=== PATIENT | female | born 1955 | race Caucasian/White ===

== ENCOUNTER 2024-12-12 08:38 | Outpatient (AMB) | payer MEDICARE, SELFPAY ==
--- OUTSIDE RECORDS SUMMARY | 2024-12-12 08:55 | XMS_ITS | Clinical Summary ---
Author Organization [facility] ity Address [address] [place] [address] Care Team Providers Care Edi Developer Name Role Phone Unavailable Primary Care Provider Unavailabl e Social History Tobacco Use Types Packs/Day Years Used Date Smoking Tobacco: Never Assessed Sex and Gender Information Value Date Recorded Sex Assigned at Not on file Gender Identity Not on file Sexual Orientation Not on file Plan of Treatment Health Maintenance Due Date Last Done Comments Breast Cancer Screening 1955 DTaP,Tdap,and Td Vaccines (1 - Tdap) 1972 Zoster Vaccines (1 of 2) 2003 Pneumococcal Vaccine: 65+ Ye ars (1 of 1 - PCV) 2018 Colorectal Cancer Screening: Colonoscopy 10/11/2022 Depression Screening 10/11/2022 Falls Risk Assessment 10/11/2022 Hepatitis C Screening 10/11/2022 Osteoporosis Screening (Bone Density Screening) 10/11/2022 Social Influencers of Health Screening 10/11/2022 COVID-19 Vaccine ( - 2023-2 5 season) 2024 Influenza Vaccine (#1) 2024 RSV Immunization Patients 60 + Years Old (1 - 1-dose 75+ series) 2028 HIB Vaccines Aged Out No longer eligi ble based on patient's age to complete this topic HPV Vaccines Aged Out No longer eligi ble based on patient's age to complete this topic Hepatitis A Vaccines Aged Out No long er eligible based on patient's age to complete this topic Hepatitis B Vaccines Aged Out No long er eligible based on patient's age to complete this topic IPV Vaccines Aged Out No longer eligi ble based on patient's age to complete this topic MMR Vaccines Aged Out No longer eligi ble based on patient's age to complete this topic Meningococcal ACWY Vaccine Aged Out N o longer eligible based on patient's age to complete this topic RSV Immunization Patients Un tammie 20 months Aged Out No longer eligible b ased on patient's age to complete this topic Varicella Vaccines Aged Out No longer eligible based on patient's age to complete this topic Advance Directives Documents on File Type Date Recorded 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
--- NOTE | 2024-12-12 09:02 | MHC.PC.OV ---
Vital Signs 12/12/24 09:05 Height 5 ft 2 in Weight 225 lb 8 oz BMI 41.2 BP 106/66 Blood Pressure Location Lt brachial Position Sitting Pulse 83 Pulse Source Pulse Oximeter Temp 97.3 F Temp Source Skin Pulse Oximetry (%) 93 Oxygen Delivery Method Room Air Intake Visit Reasons: establish care Intake Note: Patient is a new patient here to establish care for HTN, Cholesterol, Chronic Pain, GERD, Neuropathy. Transferring care from Dr De Guzman ([facility] ([place], [place])). Medical records have been requested and have not received. Pt decline flu shot today. Skin Care Consultant Required: No Exhibitions And Collections Manager: Not Required per policy Accompanied by: Self / Same As Patient Allergies No Known Allergies Allergy (Verified 12/13/24 08:05) Medication List - Last Reconciled 12/13/24 by Tim Cornell PA-C acetaminophen ER (Tylenol Arthritis Pain) 650 mg PO Q12H allopurinol 100 mg PO BID biotin 5,000 mcg PO DAILY comp.stocking,knee,long,medium Need for medical compression 10-15 mmHg furosemide 20 mg PO DAILY gabapentin 300 mg PO TID Lactobac. rhamnosus GG-inulin 12 billion cell -200 mg 1 cap PO DAILY lisinopril 30 mg PO DAILY multivit with min-folic acid 200 mcg 1 tab PO DAILY omeprazole 40 mg PO DAILY simvastatin 40 mg PO BEDTIME Tobacco use date assessed: 12/12/24 Fall risk assessment: No Falls in past year Last assessed Fall Risk: 12/12/24 Dental Screening Dental Screen Date: 12/12/24 Did you have a dental visit in the last 12 months?: Yes Did you have a dental problem in the last 6 months where you did not have access to dental care?: No Was dental information given to patient?: Patient has dentist HPI establish care HPI Details Patient is a 68-year-old female here today for a new patient visit. Patient previous PCP was at [facility]. Patient has a past medical history significant for hypertension, hyperlipidemia, obstructive sleep apnea, prediabetes, nephrolithiasis, heart failure with preserved ejection fraction. .. -Pulmonary hypertensio--> Approximately 15-20 years ago, the patient fell out of a stationary van, landing on her left side, which has resulted in a larger left leg with longstanding positional preference while sleeping on the left side. Two years ago, the patient noticed increasing difficulty in ambulating and rising stairs, reporting to the emergency room at [facility], where she was noted to have swollen limbs. Initial workup led to a suspicion of congestive heart failure, but later assessments ruled out this diagnosis, although severe pulmonary hypertension was noted. She takes diuretics daily as prescribed to manage fluid retention but reports no exacerbation of urination issues. .. Nephrolithiasis: Patient does follow urologist in [place]. She continues on allopurinol to decrease her recurrent kidney stones. .. Lower extremity edema: Seems to have lower extremity edema has a chronic issue. Has been using compression socks though since losing weight they have become more loose. Also using Lasix on a daily basis. On physical exam does seem she may have lymphedema likely secondary to her obesity. She does have some skin hyperpigmentation changes over her anterior shins. [facility] Medical History History of calculus of gallbladder Social History Housing: House Alcohol intake: never Patient Tobacco Use Status: Never used Tobacco e-Cigarette/Vaping Use: Never Used Second Hand Smoke Exposure: No service: No Current occupational status: disabled Cognitive needs: Yes (walker, wheelchair, cane ) Hearing needs: No Vision needs: Yes (reading glasses) Questionnaire PHQ-9 Over the last 2 weeks, how often have you been bothered by any of the following problems? 1. Little interest or pleasure in doing things: not at all 2. Feeling down, depressed, or hopeless: not at all 3. Trouble falling or staying asleep, or sleeping too much: not at all 4. Feeling tired or having little energy: not at all 5. Poor appetite or overeating: not at all 6. Feeling bad about yourself - or that you are a failure or have let yourself or your family down: not at all 7. Trouble concentrating on things, such as reading the newspaper or watching television: not at all 8. Moving or speaking so slowly that other people could have noticed. Or the opposite - being so fidgety or restless that you have been moving around a lot more than usual: not at all 9. Thoughts that you would be better off or of hurting yourself in some way: not at all Total score: 0 Depression Screening Interpretation: Negative Depression Screening Done: Yes 88796 - PHQ-9 Billing: Yes Source: Developed by Drs. Efra Bautista, Chang Trammell and colleagues, with an educational phillip from [employer]. Thrive Questionnaire Date Thrive assessed: 12/12/24 I am a: Patient What is your living situation today?: I have a steady place to live Within the past 12 months, did the food you bought not last and you didn't have the money to get more?: Never true Within the past 12 months, did you worry whether your food would run out before you got money to buy more?: Never true Do you have trouble paying for medicines?: No Do you have trouble getting transportation to medical appointments?: No Do you have trouble paying your heating and electricity bill?: No Do you have trouble taking care of your child, family member or friend?: No Do you have trouble with day-to-day activities such as bathing, preparing meals, shopping, managing finances, etc.?: No Are you currently unemployed and looking for a job?: No Are you interested in more education?: No Please select the resources that you would like help with: None Currently or been in a relationship where the following occur: No concerns reported THRIVE Score: 0 AUDIT C Alcohol Use Questionnaire (AUDIT-C) 1. How often do you have a drink containing alcohol?: Never Total Score: 0 JARED-7 AMB Questionnaire JARED-7 Date JARED - 7 assessed: 12/12/24 Feeling nervous, anxious, or on edge: 0 = Not at all Not being able to stop or control worryin = Not at all Worrying too much about different things: 0 = Not at all Trouble relaxin = Not at all Being so restless that it is hard to sit still: 0 = Not at all Becoming easily annoyed or irritable: 0 = Not at all Feeling afraid as if something awful might happen: 0 = Not at all Total JARED-7 score (0-4 normal; 5-9 mild; 10-14 moderate; 15-21 severe): 0 Source: Developed by Priyanka Marquez Kurt Kroenke and colleagues, with an educational phillip from [employer]. Review of Systems Const Denies headache(s) Eyes Denies loss of vision ENT Denies vertigo, Denies dizziness, Denies headache(s) and Denies sore throat Card Denies chest pain, Denies leg edema and Denies lightheadedness Resp Denies cough, Denies hemoptysis and Denies wheezing GI Denies abdominal pain, Denies melena, Denies constipation, Denies diarrhea and Denies vomiting Denies urinary frequency, Denies dysuria and Denies urinary urgency Musc Denies arthralgias, Denies joint swelling, Denies numbness and Denies tingling Neuro Denies Abnormal speech present, Denies behavioral changes, Denies vertigo, Denies dizziness, Denies headache(s), Denies loss of vision, Denies memory loss, Denies numbness and Denies tingling Psych Denies anxiety, Denies behavioral changes, Denies depression, Denies memory loss and Denies panic attacks Deangelo/Lymph Denies easy bleeding and Denies easy bruising Aller/Immun Denies wheezing Physical exam (Primary Care) Vital Signs: Last Vital Signs Temp 97.3 F 12/12/24 09:05 Pulse 83 12/12/24 09:05 BP 106/66 12/12/24 09:05 Pulse Ox 93 12/12/24 09:05 Oxygen Delivery Method Room Air 12/12/24 09:05 BMI result Body Mass Index 41.2 BMI Assessment/Plan discussion: High BMI High, discussed plan: lifestyle, weight reduction, dietary and physical activity Tobacco/Smoking Status: Tobacco use Status Tobacco use date assessed 12/12/24 12/12/24 09:26 Patient Tobacco Use Status Never used Tobacco 12/12/24 09:26 e-Cigarette/Vaping Use Never Used 12/12/24 09:26 PHQ-9: PHQ-9 Score PHQ-9: Total score 0 12/12/24 13:14 Depression Screening Interpretation: Negative Thrive Assessment: Date of Thrive Assessment Date Thrive assessed 12/12/24 12/12/24 09:26 Currently or been in a relationship where the following occur: No concerns reported Const General: healthy appearing, no acute distress, alert and awake Nutritional Appearance: well nourished Orientation/consciousness: oriented to person, oriented to place and oriented to time HENMT Ears: TM's normal bilaterally General nose exam: Normal nasal mucous membranes and turbinates present Eyes Conjunctivae: conjunctivae normal Sclerae: sclerae normal Pupils: Equal, round and reactive pupils present Neck Neck: Yes no lymphadenopathy and Yes no JVD Thyroid: Thyroid normal Carotids: no bruits Resp Effort & Inspection: normal respiratory effort and not tachypneic Auscultation: no crackles, no rales, no rhonchi and no wheezes Cardio Rate: regular rate Rhythm: regular rhythm Heart sounds: no murmurs and normal S1 and S2 GI Palpation (GI): Soft to palpation, nontender, no hepatomegaly and no splenomegaly Auscultation: normal bowel sounds Skin General skin exam: no rashes or lesions noted and dry skin Neuro General: oriented to person, oriented to place and oriented to time Cranial nerves: Yes Equal, round and reactive pupils present Speech: No Abnormal speech present Gait exam (Neuro): Normal gait present Motor exam (neuro): no tremor noted Extrem Other: BILATERAL LOWER EXTREMITIES WITH NOTABLE LYMPHEDEMA WITH SKIN CHANGES OF HYPERPIGMENTATION OVER THE ANTERIOR SHINS Right upper extremity: full ROM Left upper extremity: full ROM Right lower extremity: full ROM and edema Left lower extremity: full ROM and edema Psych Mental Status: mental status grossly normal Speech and movement: Normal speech and movement present Affect: normal affect Attitude: cooperative Thought process: Normal thought process present Coding Level of Care Code New Pt Level 4 (17793) Diagnoses Primary hypertension I10 Hypertension type: primary hypertension Chronic diastolic congestive heart failure, NYHA class 2 I50.32 Congestive heart failure chronicity: chronic Congestive heart failure type: diastolic Pulmonary HTN I27.20 Class 3 obesity E66.813 Lower extremity edema R60.0 Nephrolithiasis N20.0 Mixed hyperlipidemia E78.2 Hyperlipidemia type: mixed hyperlipidemia Impaired glucose metabolism R73.09 Lymphedema I89.0 Additional Codes PHQ-9 - 47750 - PHQ-9 Billing: Yes ([id number]) Assessment & Plan Assessment & Plan (1) HTN (hypertension): Code(s): I10 - Essential (primary) hypertension Category: Medical Qualifiers: Hypertension type: primary hypertension Qualified Code(s): I10 - Essential (primary) hypertension Plan: Patient's blood pressure acceptable today office. Will continue her current dose antihypertensive medication with goal blood pressure to be below 140/90 (2) CHF (congestive heart failure), NYHA class II: Code(s): I50.9 - Heart failure, unspecified Category: Medical Qualifiers: Congestive heart failure chronicity: chronic Congestive heart failure type: diastolic Qualified Code(s): I50.32 - Chronic diastolic (congestive) heart failure Plan: As per HPI patient was to have a preserved ejection fraction 55-60% at [facility]. She was found to have severe pulmonary hypertension. Of note she does apparently have a history of obstructive sleep apnea though feels she does not have this anymore. Offered her re-evaluation with a sleep study though she declines at this time. (3) Pulmonary HTN: Code(s): I27.20 - Pulmonary hypertension, unspecified Category: Medical Plan: As above (4) Class 3 obesity: Code(s): E66.813 - Obesity, class 3 Category: Medical Plan: Patient does understand her BMI is over 40 and will continue working on being more physically active and adapting to better eating habits to reduce weight (5) Lower extremity edema: Code(s): R60.0 - Localized edema Category: Medical Plan: Patient continues with Lasix on a daily basis though not clear if this is helpful to her lower extremity edema. Will supply patient with paper Rx for medical compression socks to use for her lower extremity edema. Will also refer to vascular for evaluation and possible lymphedema clinic treatment. (6) Nephrolithiasis: Code(s): N20.0 - Calculus of kidney Category: Medical Plan: Patient continues on allopurinol and is followed by a urologist in [place]. She has not had any kidney stone and quite awhile. (7) HLD (hyperlipidemia): Code(s): E78.5 - Hyperlipidemia, unspecified Category: Medical Qualifiers: Hyperlipidemia type: mixed hyperlipidemia Qualified Code(s): E78.2 - Mixed hyperlipidemia Plan: Patient continues on simvastatin 40 mg. Will check a fasting lipid panel to ensure appropriate total cholesterol and LDL. Goal LDL to be below 100 (8) Impaired glucose metabolism: Code(s): R73.09 - Other abnormal glucose Category: Medical Plan: Patient has a history of prediabetes to which he has been trying to manage with lifestyle and dietary modifications. Will continue to follow fasting blood sugar and A1c. Goal A1c is to remain below 6.5. (9) Lymphedema: Code(s): I89.0 - Lymphedema, not elsewhere classified Category: Medical Plan: As above patient's lower extremity swelling appears to be more lymphedema like. Will refer to vascular for evaluation and perhaps more articulating in the lymphedema Clinic for mechanical massage. Orders: Orders Hemoglobin A1c 12/12/24 R73.09 - Other abnormal glucose Uric Acid 12/12/24 N20.0 - Calculus of kidney Microalbumin, Random (w Creat) 12/12/24 I10 - Essential (primary) hypertension Comprehensive Advance. Panel Fast 12/12/24 I10 - Essential (primary) hypertension Complete Blood Count no Diff 12/12/24 I10 - Essential (primary) hypertension US venous duplex LE BI 12/12/24 I89.0 - Lymphedema, not elsewhere classified, R60.0 - Localized edema Referrals Cardiology Referral I50.9 - Heart failure, unspecified Vascular Surgery Referral I89.0 - Lymphedema, not elsewhere classified Medications: New comp.stocking,knee,long,medium Need for medical compression 10-15 mmHg 2 ea 0RF R60.0 - Localized edema
[2024-12-12 09:05] VITALS: BP 106/66; PULSE 83; TEMP 36.3; O2SAT 93; BMI 41.2
== END 2024-12-12 09:53 | disposition home or self-care (01) ==
PROVIDERS: PCP Physician Assistant; Visit Provider Physician Assistant
DX: I11.0 Hypertensive heart disease with heart failure (principal); I50.32 Chronic diastolic (congestive) heart failure; E66.813 Obesity, class 3; Z68.41 Body mass index [BMI] 40.0-44.9, adult; I27.20 Pulmonary hypertension, unspecified; R60.0 Localized edema; N20.0 Calculus of kidney; E78.2 Mixed hyperlipidemia; R73.09 Other abnormal glucose; I89.0 Lymphedema, not elsewhere classified

== ENCOUNTER → 2024-12-12 08:38 | Outpatient (BNVA) | payer MEDICARE, SELFPAY | PROVIDERS: PCP Physician Assistant; Visit Provider Physician Assistant | DX: I11.0 Hypertensive heart disease with heart failure (principal); I50.32 Chronic diastolic (congestive) heart failure; I27.20 Pulmonary hypertension, unspecified; R60.0 Localized edema; N20.0 Calculus of kidney; E78.2 Mixed hyperlipidemia; R73.09 Other abnormal glucose; I89.0 Lymphedema, not elsewhere classified; E66.813 Obesity, class 3; Z68.41 Body mass index [BMI] 40.0-44.9, adult; Z71.3 Dietary counseling and surveillance | CPT/HCPCS: 96127; 99202 ==

== ENCOUNTER 2025-03-01 09:20 | Outpatient (REF) | payer MEDICARE, SELFPAY ==
--- NOTE | ~2025-03-01 | US_ITS ---
US ARTERIAL DUPLEX LE BI EXAMINATION: COLOR-FLOW DUPLEX IMAGING OF THE BILATERAL LOWER EXTREMITY ARTERIAL SYSTEM. VELOCITY MEASUREMENTS THROUGHOUT THE FEMORAL ARTERIES. CLINICAL INFORMATION: Localized edema. Hypertension, hyperlipidemia. FINDINGS: Atheromatous Plaque: Mild scattered soft plaque identified sonographically. RIGHT FEMORAL RUNOFF VELOCITIES: The right common femoral artery measures 240 cm/s and triphasic. There is moderate stenosis by velocity criteria. The right profunda femoral artery is 76 cm/s and is triphasic. The right proximal superficial femoral artery measures 144 cm/s and triphasic. There is mild stenosis by velocity criteria. The right mid superficial femoral artery is 113 cm/s and triphasic. The right distal right superficial femoral artery measures 123 cm/s and is triphasic. The right popliteal velocity measures 83 cm/s and is triphasic. The right posterior tibial artery velocity measures 90 cm/s and is triphasic. The right peroneal artery proximally velocity measures 85.6 cm/s and is biphasic. The right DPA velocity measures 24.2 cm/s and is triphasic. The right KYLE velocity measures 20.2 cm/s and is biphasic. LEFT FEMORAL RUNOFF VELOCITIES: The left common femoral artery measures 135 cm/s and triphasic. There is mild stenosis by velocity criteria. The left profunda femoral artery is 90.9 cm/s and is triphasic. The left proximal superficial femoral artery measures 126 cm/s and triphasic. There is mild stenosis by velocity criteria. The left mid superficial femoral artery is 138 cm/s and biphasic. There is mild stenosis by velocity criteria. The left distal right superficial femoral artery measures 59 cm/s and is triphasic. The left popliteal velocity measures 90 cm/s and is triphasic. The left posterior tibial artery velocity measures 77 cm/s and is triphasic. The left peroneal artery measures 75 cm/s and is triphasic. The left DPA velocity measures 28.3 cm/s and is biphasic. The left KYLE velocity measures 17.7 cm/s and is triphasic. US/US arterial duplex LE BI IMPRESSION: 1. There is mild scattered atheromatous plaque bilaterally. 2. Moderate stenosis in the RIGHT common femoral artery based upon velocity criteria. 3. 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 4. No high-grade stenosis identified in either lower extremity on this sonographic examination. Electronically signed by: Hemant Torres MD 03/06/2025 08:46 AM EDT RP
--- OUTSIDE RECORDS SUMMARY | 2025-03-01 10:16 | XMS_ITS | Clinical Summary ---
Author Organization [facility] ity Address [address] [place] [address] Care Team Providers Care Solution Analyst Name Role Phone Unavailable Primary Care Provider Unavailabl e Social History Tobacco Use Types Packs/Day Years Used Date Smoking Tobacco: Never Assessed Comments Unknown Sex and Gender Information Value Date Recorded Sex Assigned at Not on file Legal Sex Female 8:08 AM EST Gender Identity Not on file Sexual Orientation Not on file Plan of Treatment Health Maintenance Due Date Last Done Comments Breast Cancer Screening 1955 DTaP,Tdap,and Td Vaccines (1 - Tdap) 1972 Pneumococcal Vaccine: 50+ Ye ars (1 of 1 - PCV) 2003 Zoster Vaccines (1 of 2) 2003 Colorectal Cancer Screening: Colonoscopy 10/11/2022 Depression Screening 10/11/2022 Falls Risk Assessment 10/11/2022 Hepatitis C Screening 10/11/2022 Osteoporosis Screening (Bone Density Screening) 10/11/2022 Social Influencers of Health Screening 10/11/2022 COVID-19 Vaccine (2023-2 5 season) 2024 Influenza Vaccine (Season Ended) 2025 RSV Immunization Adult Patie nts (1 - 1-dose 75+ series) 2028 HIB [...] patient's age to complete this topic Meningococcal B Vaccine Aged Out No l onger eligible based on patient's age to complete this topic RSV Immunization Patients Un tammie 20 months Aged Out No longer eligible b ased on patient's age to complete this topic Varicella Vaccines Aged Out No longer eligible based on patient's age to complete this topic Advance Directives Documents on File Type Date Recorded Patient Christian Counselor Expl anation Health Care Decision (hx) 09/03/2023 AD CLARISA DIRECTIVE
[2025-03-01 10:41] LABS: Hematocrit 35.1 % (37.0-47.0); Hemoglobin 11.3 g/dl (12.0-16.0); Mean Corpuscular HGB Conc 32.2 g/dl (31.0-35.0); Mean Corpuscular Hemoglobin 33.3 pg (27.0-33.0); Mean Corpuscular Volume 103.5 fL (80.0-98.0); Mean Platelet Volume 10.8 fL (9.4-12.3); Platelet Count 213 X10*3/uL (160-400); Red Blood Count 3.39 X10*6/uL (4.20-5.50); Red Cell Distribution Width 13.4 % (11.0-16.0); White Blood Count 7.3 X10*3/uL (4.8-10.8)
[2025-03-01 10:47] LABS: Estimated Average Glucose 126 mg/dL; Hemoglobin A1C 124.7173 umol/L; Total Hemoglobin (HGBA1C) 2994.0498 umol/L
[2025-03-01 11:22] LABS: Alanine Aminotransferase 10 U/L (0-31); Albumin Level 3.8 g/dL (3.5-5.0); Alkaline Phosphatase 111 U/L (39-117); Anion Gap 12 (12-20); Aspartate Amino Transferase 15 U/L (5-31); Bilirubin Total 0.4 mg/dL (0.0-1.0); Blood Urea Nitrogen 54 mg/dL (9-16); Calcium 9.5 mg/dL (8.4-10.2); Carbon Dioxide 22 mmol/L (22-29); Chloride 112 mmol/L (96-108); Estimated Glomerular Filt Rate 34; Glucose Fasting 105 mg/dL (60-99); Potassium 5.5 mmol/L (3.3-5.1); Sodium 140 mmol/L (135-145); Total Protein 6.8 g/dL (6.5-8.0); Uric Acid 4.7 mg/dL (2.4-5.7)
[2025-03-01 12:36] LABS: Creatinine Urine 99.31 mg/dL
== END 2025-03-01 09:21 | disposition home or self-care (01) ==
LOC: HO.US 09:20
PROVIDERS: PCP Physician Assistant; Visit Provider Physician Assistant
DX: N20.0 Calculus of kidney (principal); R73.09 Other abnormal glucose; I10 Essential (primary) hypertension; I70.203 Unspecified atherosclerosis of native arteries of extremities, bilateral legs; R60.0 Localized edema
CPT/HCPCS: 36415; 80053; 82043; 82570; 83036; 84550; 85027; 93925

== ENCOUNTER → 2025-03-01 09:47 | Outpatient (BNV) | payer MEDICARE, SELFPAY | PROVIDERS: PCP Physician Assistant; Visit Provider Radiology Diagnostic Radiology | DX: I70.201 Unspecified atherosclerosis of native arteries of extremities, right leg (principal) | CPT/HCPCS: 93925 ==

== ENCOUNTER 2025-03-08 10:47 | Outpatient (REF) | payer MEDICARE, SELFPAY ==
--- OUTSIDE RECORDS SUMMARY | 2025-03-08 12:23 | XMS_ITS | Clinical Summary ---
Author Organization [facility] ity Address [address] [place] [address] Care Team Providers Care Publications Writer Name Role Phone Unavailable Primary Care Provider [...] Documents on File Type Date Recorded Patient Service Center Assistant Expl anation Health Care Decision (hx) 09/03/2023 AD CLARISA DIRECTIVE
[2025-03-08 12:31] LABS: Anion Gap 14 (12-20); Blood Urea Nitrogen 37 mg/dL (9-16); Calcium 9.5 mg/dL (8.4-10.2); Carbon Dioxide 26 mmol/L (22-29); Chloride 108 mmol/L (96-108); Estimated Glomerular Filt Rate 49; Glucose Random 115 mg/dL (60-115); Potassium 5.6 mmol/L (3.3-5.1); Sodium 142 mmol/L (135-145)
== END 2025-03-08 10:48 | disposition home or self-care (01) ==
LOC: HO.LAB 10:47
PROVIDERS: PCP Physician Assistant; Visit Provider Physician Assistant
DX: E87.5 Hyperkalemia (principal)
CPT/HCPCS: 36415; 80048

== ENCOUNTER 2025-03-23 10:25 | Outpatient (REF) | payer MEDICARE, SELFPAY ==
--- OUTSIDE RECORDS SUMMARY | 2025-03-23 10:45 | XMS_ITS | Clinical Summary ---
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
[2025-03-23 11:59] LABS: Potassium 3.4 mmol/L (3.3-5.1)
== END 2025-03-23 10:26 | disposition home or self-care (01) ==
LOC: HO.LAB 10:25
PROVIDERS: PCP Physician Assistant; Visit Provider Physician Assistant
DX: E87.5 Hyperkalemia (principal)
CPT/HCPCS: 36415; 84132

== ENCOUNTER 2025-03-29 11:04 | Outpatient (AMB) | payer MEDICARE, SELFPAY ==
--- NOTE | 2025-03-29 11:18 | MHC.PC.OV ---
Vital Signs 03/29/25 11:30 Height 5 ft 2 in Weight 235 lb 2 oz BMI 43.0 BP 104/66 Blood Pressure Location Lt brachial Position Sitting Pulse 68 Pulse Source Pulse Oximeter Temp 97.3 F Temp Source Temporal Artery Scan Pulse Oximetry (%) 98 Oxygen Delivery Method Room Air Intake Visit Reasons: f/u HTN/ IGM - see comments Incoming Freight Clerk Required: No Accompanied by: Spouse Allergies No Known Allergies Allergy (Verified 03/29/25 11:49) Medication List - Last Reconciled 03/29/25 by Tim Cornell PA-C acetaminophen ER (Tylenol Arthritis Pain) 650 mg PO Q12H allopurinol 100 mg PO BID biotin 5,000 mcg PO DAILY comp.stocking,knee,long,medium Need for medical compression 10-15 mmHg furosemide 20 mg PO DAILY gabapentin 300 mg PO TID hydrochlorothiazide 12.5 mg PO DAILY Lactobac. rhamnosus GG-inulin 12 billion cell -200 mg 1 cap PO DAILY lisinopril 30 mg PO DAILY multivit with min-folic acid 200 mcg 1 tab PO DAILY omeprazole 40 mg PO DAILY simvastatin 40 mg PO BEDTIME sodium polystyrene sulf-sorbtl 15-20 gram/60 mL 60 mL PO .once per week 4 weeks Tobacco use date assessed: 12/12/24 Fall risk assessment: No Falls in past year Last assessed Fall Risk: 03/29/25 Dental Screening Dental Screen Date: 12/12/24 HPI f/u HTN/ IGM - see comments HPI Details Patient is a 69-year-old female here today for a follow-up visit . . Patient has a past medical history significant for hypertension, hyperlipidemia, obstructive sleep apnea, prediabetes, nephrolithiasis, heart failure with preserved ejection fraction. .. Hyperkalemia: Recently found to have hyperkalemia was started polystyrene liquid once weekly. Potassium seems to have improved. Will has been holding her lisinopril has a maybe cause of her hyperkalemia. PLAN: For now plan is to continue polystyrene once weekly, continue off of KATY inhibitor. Continue on hydrochlorothiazide and monitor blood pressure .. Nephrolithiasis: Patient does follow urologist in [place]. She continues on allopurinol to decrease her recurrent kidney stones. .. Lower extremity edema: Seems to have lower extremity edema has a chronic issue. Has been using compression socks though since losing weight they have become more loose. Also using Lasix on a daily basis. On physical exam does seem she may have lymphedema likely secondary to her obesity. She does have some skin hyperpigmentation changes over her anterior shins. .. Impaired glucose metabolism: Patient's most recent fasting blood sugar slightly elevated and A1c 6.0. She will continue working on dietary modifications on controlling her fasting blood sugars [facility] Medical History History of calculus of gallbladder Social History Housing: House Alcohol intake: never Patient Tobacco Use Status: Never used Tobacco e-Cigarette/Vaping Use: Never Used Second Hand Smoke Exposure: No service: No Current occupational status: disabled Cognitive needs: Yes (walker, wheelchair, cane ) Hearing needs: No Vision needs: Yes (reading glasses) Questionnaire PHQ-9 Over the last 2 weeks, how often have you been bothered by any of the following problems? 1. Little interest or pleasure in doing things: not at all 2. Feeling down, depressed, or hopeless: several days 3. Trouble falling or staying asleep, or sleeping too much: not at all 4. Feeling tired or having little energy: not at all 5. Poor appetite or overeating: not at all 6. Feeling bad about yourself - or that you are a failure or have let yourself or your family down: not at all 7. Trouble concentrating on things, such as reading the newspaper or watching television: not at all 8. Moving or speaking so slowly that other people could have noticed. Or the opposite - being so fidgety or restless that you have been moving around a lot more than usual: not at all 9. Thoughts that you would be better off or of hurting yourself in some way: not at all Total score: 1 Depression Screening Interpretation: Negative Depression Screening Done: Yes [id number] - PHQ-9 Billing: Yes Source: Developed by Drs. Efra Bautista, Priyanka Ewing, Chang Ruiz and colleagues, with an educational phillip from [employer]. Thrive Questionnaire Date Thrive assessed: 12/12/24 I am a: Patient What is your living situation today?: I have a steady place to live Within the past 12 months, did the food you bought not last and you didn't have the money to get more?: Never true Within the past 12 months, did you worry whether your food would run out before you got money to buy more?: Never true Do you have trouble paying for medicines?: No Do you have trouble getting transportation to medical appointments?: No Do you have trouble paying your heating and electricity bill?: No Do you have trouble taking care of your child, family member or friend?: No Do you have trouble with day-to-day activities such as bathing, preparing meals, shopping, managing finances, etc.?: No Are you currently unemployed and looking for a job?: No Are you interested in more education?: No Please select the resources that you would like help with: None Currently or been in a relationship where the following occur: No concerns reported THRIVE Score: 0 JARED-7 AMB Questionnaire JARED-7 Date JARED - 7 assessed: 12/12/24 Source: Developed by Drs. Efra Bautista, Priyanka Ewing, Chang Ruiz and colleagues, with an educational phillip from [employer]. Review of Systems Const Denies headache(s) Eyes Denies loss of vision ENT Denies vertigo, Denies dizziness, Denies headache(s) and Denies sore throat Card Denies chest pain, Denies leg edema and Denies lightheadedness Resp Denies cough, Denies hemoptysis and Denies wheezing GI Denies abdominal pain, Denies melena, Denies constipation, Denies diarrhea and Denies vomiting Denies urinary frequency, Denies dysuria and Denies urinary urgency Musc Denies arthralgias, Denies joint swelling, Denies numbness and Denies tingling Neuro Denies Abnormal speech present, Denies behavioral changes, Denies vertigo, Denies dizziness, Denies headache(s), Denies loss of vision, Denies memory loss, Denies numbness and Denies tingling Psych Denies anxiety, Denies behavioral changes, Denies depression, Denies memory loss and Denies panic attacks Deangelo/Lymph Denies easy bleeding and Denies easy bruising Aller/Immun Denies wheezing Physical exam (Primary Care) Vital Signs: Last Vital Signs Temp 97.3 F 03/29/25 11:30 Pulse 68 03/29/25 11:30 BP 104/66 03/29/25 11:30 Pulse Ox 98 03/29/25 11:30 Oxygen Delivery Method Room Air 03/29/25 11:30 BMI result Body Mass Index 43.0 BMI Assessment/Plan discussion: High BMI High, discussed plan: lifestyle, weight reduction, dietary and physical activity Tobacco/Smoking Status: Tobacco use Status Tobacco use date assessed 12/12/24 03/29/25 11:18 Patient Tobacco Use Status Never used Tobacco 03/29/25 11:18 e-Cigarette/Vaping Use Never Used 03/29/25 11:18 PHQ-9: PHQ-9 Score PHQ-9: Total score 1 03/29/25 12:05 Depression Screening Interpretation: Negative Thrive Assessment: Date of Thrive Assessment Date Thrive assessed 12/12/24 03/29/25 11:18 Currently or been in a relationship where the following occur: No concerns reported Const General: healthy appearing, no acute distress, alert and awake Nutritional Appearance: well nourished Orientation/consciousness: oriented to person, oriented to place and oriented to time HENMT Ears: TM's normal bilaterally General nose exam: Normal nasal mucous membranes and turbinates present Eyes Conjunctivae: conjunctivae normal Sclerae: sclerae normal Pupils: Equal, round and reactive pupils present Neck Neck: Yes no lymphadenopathy and Yes no JVD Thyroid: Thyroid normal Carotids: no bruits Resp Effort & Inspection: normal respiratory effort and not tachypneic Auscultation: no crackles, no rales, no rhonchi and no wheezes Cardio Rate: regular rate Rhythm: regular rhythm Heart sounds: no murmurs and normal S1 and S2 GI Palpation (GI): Soft to palpation, nontender, no hepatomegaly and no splenomegaly Auscultation: normal bowel sounds Skin General skin exam: no rashes or lesions noted and dry skin Neuro General: oriented to person, oriented to place and oriented to time Cranial nerves: Yes Equal, round and reactive pupils present Speech: No Abnormal speech present Gait exam (Neuro): Normal gait present Motor exam (neuro): no tremor noted Extrem Right upper extremity: full ROM Left upper extremity: full ROM Right lower extremity: full ROM; no edema Left lower extremity: full ROM; no edema Psych Mental Status: mental status grossly normal Speech and movement: Normal speech and movement present Affect: normal affect Attitude: cooperative Thought process: Normal thought process present Coding Level of Care Code Est Pt Level 4 (72326) Diagnoses Primary hypertension I10 Hypertension type: primary hypertension Chronic diastolic congestive heart failure, NYHA class 2 I50.32 Congestive heart failure chronicity: chronic Congestive heart failure type: diastolic Pulmonary HTN I27.20 Class 3 obesity E66.813 Lower extremity edema R60.0 Mixed hyperlipidemia E78.2 Hyperlipidemia type: mixed hyperlipidemia Impaired glucose metabolism R73.09 Lymphedema I89.0 Hyperkalemia E87.5 Additional Codes PHQ-9 - 96251 - PHQ-9 Billing: Yes ([id number]) Assessment & Plan Assessment & Plan (1) HTN (hypertension): Code(s): I10 - Essential (primary) hypertension Category: Medical Qualifiers: Hypertension type: primary hypertension Qualified Code(s): I10 - Essential (primary) hypertension Plan: Patient's blood pressure acceptable today office. We have discontinued her lisinopril to the hyperkalemia. Has been started on hydrochlorothiazide and does note urinary frequency though has been tolerable. Will continue her current dose of hydrochlorothiazide 12.5 mg Goal blood pressure to be below 140/90 (2) CHF (congestive heart failure), NYHA class II: Code(s): I50.9 - Heart failure, unspecified Category: Medical Qualifiers: Congestive heart failure chronicity: chronic Congestive heart failure type: diastolic Qualified Code(s): I50.32 - Chronic diastolic (congestive) heart failure Plan: As per HPI patient was to have a preserved ejection fraction 55-60% at [facility]. She was found to have severe pulmonary hypertension. Of note she does apparently have a history of obstructive sleep apnea though feels she does not have this anymore. Offered her re-evaluation with a sleep study though she declines at this time. (3) Pulmonary HTN: Code(s): I27.20 - Pulmonary hypertension, unspecified Category: Medical Plan: As above (4) Class 3 obesity: Code(s): E66.813 - Obesity, class 3 Category: Medical Plan: Patient does understand her BMI is over 40 and will continue working on being more physically active and adapting to better eating habits to reduce weight (5) Lower extremity edema: Code(s): R60.0 - Localized edema Category: Medical Plan: Patient continues with Lasix on a daily basis though not clear if this is helpful to her lower extremity edema. Will also refer to vascular for evaluation and possible lymphedema clinic treatment. (6) HLD (hyperlipidemia): Code(s): E78.5 - Hyperlipidemia, unspecified Category: Medical Qualifiers: Hyperlipidemia type: mixed hyperlipidemia Qualified Code(s): E78.2 - Mixed hyperlipidemia Plan: Patient continues on simvastatin 40 mg. Will check a fasting lipid panel to ensure appropriate total cholesterol and LDL. Goal LDL to be below 100 (7) Impaired glucose metabolism: Code(s): R73.09 - Other abnormal glucose Category: Medical Plan: Patient has a history of prediabetes most recent fasting blood sugar slightly elevated in A1c is 6.0. She will continue working on dietary modifications to reduce her blood sugars. Goal A1c is to remain below 6.5. (8) Lymphedema: Code(s): I89.0 - Lymphedema, not elsewhere classified Category: Medical Plan: As above patient's lower extremity swelling appears to be more lymphedema like. Will refer to vascular for evaluation and perhaps more articulating in the lymphedema Clinic for mechanical massage. (9) Hyperkalemia: Code(s): E87.5 - Hyperkalemia Category: Medical Plan: As per HPI- will continue polystyrene once weekly, continue off of KTAY inhibitor which is likely cause of her hyperkalemia. Continues on hydrochlorothiazide for blood pressure control. Orders: Orders Comprehensive [place]. Panel Fast Today R73.09 - Other abnormal glucose NT-proBNP Today I50.32 - Chronic diastolic (congestive) heart failure Lipid Panel Today E78.2 - Mixed hyperlipidemia Hemoglobin A1c Today R73.09 - Other abnormal glucose Complete Blood Count no Diff Today R73.09 - Other abnormal glucose Referrals Vascular Surgery Referral I89.0 - Lymphedema, not elsewhere classified
[2025-03-29 11:30] VITALS: BP 104/66; PULSE 68; TEMP 36.3; O2SAT 98; BMI 43.0
--- OUTSIDE RECORDS SUMMARY | 2025-03-29 11:44 | XMS_ITS | Clinical Summary ---
Author Organization [facility] Address [address] [place] [address] Phone Care Team Providers Care Configuration Management Architect Name Role Phone Physician, Pcp Unknown Primary Care Provider Estella vailable Allergies No known active allergies Medications No known medications Active Problems No known active problems Encounters Date Type Department Care Team Description 03/27/2025 8:56 PM EDT - 03/27/2025 9:36 PM EDT Emergency [facility] Emergency [address] [place] [address] Urinary frequency (Primary Dx) Discharge Disposition: Home or Self Care from Last 3 Months Social History Tobacco Use Types Packs/Day Years Used Date Smoking Tobacco: Never Smokeless Tobacco: Never Tobacco Cessation:Counseling Given: Not Answered Alcohol Use Standard Drinks/Week Comments Never 0 (1 standard drink = 0.6 oz pur e alcohol) Comments Unknown Sex and Gender Information Value Date Recorded Sex Assigned at Not on file Legal Sex Female 8:08 AM EST Gender Identity Not on file Sexual Orientation Not on file Obstetrics History Last Filed Vital Signs Vital Sign Reading Time Taken Comments Blood Pressure 128/69 03/27/2025 8:35 PM EDT Pulse 76 03/27/2025 8:35 PM EDT Temperature 36.9 ??C (98.4 ??F) 03/27/2025 8:35 PM ED T Respiratory Rate 16 03/27/2025 8:35 PM EDT Oxygen Saturation 94% 03/27/2025 8:35 PM EDT Inhaled Oxygen Concentration - - Weight - - Height 162.6 cm (5' 4 ) 03/27/2025 2:52 PM EDT Body Mass Index - - Plan of Treatment Health Maintenance Due Date Last Done Comments Breast Cancer Screening 1955 RSV Immunization Adult Patients (1 - Risk 60-74 years 1-dose series) 2013 Zoster Vaccines (2 of 3) 05/24/2015 03/29/2015 Cholesterol Screening (Lipid Panel) 10/11/2022 Depression Screening 10/11/2022 Hepatitis C Screening 10/11/2022 Medicare Annual Wellness Visit 10/11/2022 Osteoporosis Screening (Bone Density Screening) 10/11/2022 Social Influencers of Health Screening 10/11/2022 COVID-19 Vaccine (1 - 2023-2 5 season) 2024 Influenza Vaccine (Season Ended) 2025 09/17/2016 Falls Risk Assessment 03/27/2026 03/27/2025 Hypertension/CHF/CAD Annual BMP Blood Test 03/27/2026 03/27/2025 Colorectal Cancer Screening: FIT-DNA (Cologuard) 06/23/2027 06/23/2024, 06/23/2024 DTaP,Tdap,and Td Vaccines (3 - Td or Tdap) 03/08/2034 03/08/2024, 05/25/2013 Pneumococcal Vaccine: 50+ Years Completed 03/08/2024, 09/24/2016 HIB Vaccines Aged Out No longer eligi [...] to complete this topic RSV Immunization Patients Under 20 months Aged Out No longer eligible b ased on patient's age to complete this topic Varicella Vaccines Aged Out No longer eligible based on patient's age to complete this topic Procedures Procedure Name Priority Date/Time Associated Diagnosis Comments CBC WITH AUTO DIFFERENTIAL STAT 03/27/2025 4:06 PM EDT COMPREHENSIVE METABOLIC PANEL STAT 03/27/2025 4:06 PM EDT CBC AND DIFFERENTIAL STAT 03/27/2025 4:06 PM EDT KAY URINE CULTURE TUBE STAT 03/27/2025 3:56 PM EDT URINALYSIS WITH REFLEX MICROSCOPIC AND CULTURE STAT 03/27/2025 3:56 PM EDT URINALYSIS WITH REFLEX MICROSCOPIC AND CULTURE STAT 03/27/2025 3:56 PM EDT CULTURE URINE STAT 03/27/2025 3:56 PM EDT from Last 3 Months Results * (ABNORMAL) CBC auto differential (03/27/2025 4:06 PM EDT) WBC 9.7 4.8 - 10.8 K/mcL LAB HEMETOLOGY METHOD 03/27/2025 4:31 PM EDT [facility] RBC 3.70(L) 3.80 - 4.80 M/mcL LAB HEMETOLOGY METHOD 03/27/2025 4:31 PM EDT [facility] Hemoglobin 12.3 11.5 - 16.0 g/dL LAB HEMETOLOGY METHOD 03/27/2025 4:31 PM EDT [facility] Hematocrit 38.3 35.0 - 47.0 % LAB HEMETOLOGY METHOD 03/27/2025 4:31 PM EDT [facility] MCV 104.1(H) 79.0 - 98.0 FL LAB HEMETOLOGY METHOD 03/27/2025 4:31 PM EDT [facility] MCH 33.4(H) 27.0 - 32.0 pcg LAB HEMETOLOGY METHOD 03/27/2025 4:31 PM [facility] MCHC 32.1 32.0 - 37.0 g/dL LAB HEMETOLOGY METHOD 03/27/2025 4:31 PM EDT [facility] RDW 14.0 11.0 - 15.0 % LAB HEMETOLOGY METHOD 03/27/2025 4:31 PM [facility] Platelets 251 130 - 400 K/mcL LAB HEMETOLOGY METHOD 03/27/2025 4:31 PM [facility] MPV 10.4 7.0 - 11.0 FL LAB HEMETOLOGY METHOD 03/27/2025 4:31 PM [facility] NRBC 0.0 <1.0 % LAB HEMETOLOGY METHOD 03/27/2025 4:31 PM [facility] NRBC Absolute 0.00 <0.10 K/mcL LAB HEMETOLOGY METHOD 03/27/2025 4:31 PM [facility] Neutrophils Relative 64.5 % LAB HEMETOLOGY METHOD 03/27/2025 4:31 PM [facility] Lymphocytes Relative 22.9 % LAB HEMETOLOGY METHOD 03/27/2025 4:31 PM [facility] Monocytes Relative 8.9 % LAB HEMETOLOGY METHOD 03/27/2025 4:31 PM [facility] Eosinophils Relative 2.2 % LAB HEMETOLOGY METHOD 03/27/2025 4:31 PM [facility] Basophils Relative 0.7 % LAB HEMETOLOGY METHOD 03/27/2025 4:31 PM [facility] Immature Granulocytes Relative 0.8 % LAB HEMETOLOGY METHOD 03/27/2025 4:31 PM [facility] Neutrophils Absolute 6.24 1.50 - 7.00 K/mcL LAB HEMETOLOGY METHOD 03/27/2025 4:31 PM [facility] Lymphocytes Absolute 2.21 1.00 - 5.00 K/mcL LAB HEMETOLOGY METHOD 03/27/2025 4:31 PM [facility] Monocytes Absolute 0.86 0.20 - 1.00 K/mcL LAB HEMETOLOGY METHOD 03/27/2025 4:31 PM EDT [facility] Eosinophils Absolute 0.21 0.00 - 0.50 K/[facility] LAB HEMETOLOGY METHOD 03/27/2025 4:31 PM EDT [facility] Basophils Absolute 0.07 0.00 - 0.20 K/[facility] LAB HEMETOLOGY METHOD 03/27/2025 4:31 PM EDT [facility] Immature Granulocytes Absolute 0.08(H) 0.00 - 0.03 K/[facility] LAB HEMETOLOGY METHOD 03/27/2025 4:31 PM EDT [facility] Blood Venous blood specimen / Unknown Venipuncture / Unknown 03/27/2025 4:06 PM EDT 03/27/2025 4:23 PM EDT us Hank Sidhu DO LAB BLOOD ORDERABLES Final Result [facility] [address] [place] [address], * (ABNORMAL) Comprehensive metabolic panel (03/27/2025 4:06 PM EDT) Sodium 140 133 - 145 mmol/L LAB CHEMISTRY METHOD 03/27/2025 4:59 PM EDT [facility] Potassium 3.3(L) 3.5 - 5.5 mmol/L LAB CHEMISTRY METHOD 03/27/2025 4:59 PM EDT [facility] Chloride 102 96 - 110 mmol/L LAB CHEMISTRY METHOD 03/27/2025 4:59 PM EDT [facility] CO2 33(H) 21 - 32 mmol/L LAB CHEMISTRY METHOD 03/27/2025 4:59 PM EDT [facility] Anion Gap 5 3 - 11 LAB CHEMISTRY METHOD 03/27/2025 4:59 PM EDT [facility] Glucose 112(H) 70 - 100 mg/dL LAB CHEMISTRY METHOD 03/27/2025 4:59 PM [facility] BUN 19 5 - 25 mg/dL LAB CHEMISTRY METHOD 03/27/2025 4:59 PM [facility] Creatinine 0.89 0.50 - 1.10 mg/dL LAB CHEMISTRY METHOD 03/27/2025 4:59 PM [facility] eGFR 69 >=60 mL/min/1. 73m2 LAB CHEMISTRY METHOD 03/27/2025 4:59 PM [facility] Comment:Calculation based on the Chronic Kidney Disease Epidemiology Collaboration (CKD-EPI) equation refit without adjustment for race. BUN/Creatinine Ratio 21.3 LAB CHEMISTRY METHOD 03/27/2025 4:59 PM [facility] Calcium 8.9 8.5 - 10.5 mg/dL LAB CHEMISTRY METHOD 03/27/2025 4:59 PM [facility] AST (SGOT) 11 10 - 42 unit/L LAB CHEMISTRY METHOD 03/27/2025 4:59 PM [facility] ALT (SGPT) 17 10 - 60 unit/L LAB CHEMISTRY METHOD 03/27/2025 4:59 PM [facility] Alkaline Phosphatase 156(H) 42 - 121 unit/L LAB CHEMISTRY METHOD 03/27/2025 4:59 PM [facility] Total Protein 6.8 6.0 - 8.0 g/dL LAB CHEMISTRY METHOD 03/27/2025 4:59 PM [facility] Albumin 3.4 3.2 - 5.0 g/dL LAB CHEMISTRY METHOD 03/27/2025 4:59 PM [facility] Total Bilirubin 0.3 0.0 - 1.4 mg/dL LAB CHEMISTRY METHOD 03/27/2025 4:59 PM [facility] Blood Venous blood specimen / Unknown Venipuncture / Unknown 03/27/2025 4:06 PM EDT 03/27/2025 4:23 PM EDT us Hank Sidhu DO LAB BLOOD ORDERABLES Final Result [facility] [address] [place] [address], [place] [phone] * (ABNORMAL) Urinalysis with reflex microscopic and culture (03/27/2025 3:56 PM EDT) Pathologist [facility] [place] Urine 1.015 1.003 - 1.030 LAB URINALYSIS - AUTOMATED METHOD 03/27/2025 4:36 PM EDT [facility] pH, Urine 6.0 5.0 - 8.0 pH LAB URINALYSIS - AUTOMATED METHOD 03/27/2025 4:36 PM [facility] Leukocytes, Urine Moderate(A) Negative LAB URINALYSIS - AUTOMATED METHOD 03/27/2025 4:36 PM T [facility] Nitrite, Urine Negative Negative LAB URINALYSIS - AUTOMATED METHOD 03/27/2025 4:36 PM T [facility] Protein, Urine Negative <=Trace mg/dL LAB URINALYSIS - AUTOMATED METHOD 03/27/2025 4:36 PM T [facility] Glucose, Urine Negative Negative mg/dL LAB URINALYSIS - AUTOMATED METHOD 03/27/2025 4:36 PM T [facility] Ketones, Urine Negative Negative mg/dL LAB URINALYSIS - AUTOMATED METHOD 03/27/2025 4:36 PM [facility] Urobilinogen , Urine 1.0 0.2 - 1.0 mg/dL LAB URINALYSIS - AUTOMATED METHOD 03/27/2025 4:36 PM [facility] Bilirubin, Urine Negative Negative LAB URINALYSIS - AUTOMATED METHOD 03/27/2025 4:36 PM [facility] Blood, Urine Negative Negative LAB URINALYSIS - AUTOMATED METHOD 03/27/2025 4:36 PM EDT [facility] RBC, Urine 2.3 0 - 4 /HPF LAB URINALYSIS - AUTOMATED METHOD 03/27/2025 4:36 PM EDT [facility] WBC, Urine 19.5(H) 0 - 4 /HPF LAB URINALYSIS - AUTOMATED METHOD 03/27/2025 4:36 PM EDT [facility] Squamous Epithelial, Urine 34 0 - 60 /LPF LAB URINALYSIS - AUTOMATED METHOD 03/27/2025 4:36 PM EDT [facility] Bacteria, Urine Negative Negative /HPF LAB URINALYSIS - AUTOMATED METHOD 03/27/2025 4:36 PM EDT [facility] Hyaline Casts, Urine 1.2 0 - 3 /LPF LAB URINALYSIS - AUTOMATED METHOD 03/27/2025 4:36 PM EDT [facility] Urine Urine specimen obtained by clean catch procedure / Unknown Non-blood Collection / Unknown 03/27/2025 3:56 PM EDT 03/27/2025 4:23 PM EDT us Hank Sidhu DO LAB URINE ORDERABLES Final Result [facility] [address] [place] [address], [place] [phone] * Kay urine culture tube (03/27/2025 3:56 PM EDT) Extra Tube Hold for add-ons. 03/27/2025 6:01 PM EDT [facility] Comment:Auto resulted. Urine Urine specimen obtained by clean catch procedure / Unknown Non-blood Collection / Unknown 03/27/2025 3:56 PM EDT 03/27/2025 4:23 PM EDT us Hank Sidhu DO LAB URINE ORDERABLES Final Result Performing Organization Address City/[facility]/ZIP Co de Phone Number [facility] [address] [place] [address], [place] [phone] * Culture urine (03/27/2025 3:56 PM EDT) Culture, Urine 10,000-49,000 CFU/mL Mixed urogenital charu, no uropathogens present. Suggest repeat specimen if clinically indicated. 03/28/2025 11:07 AM EDT [facility] Urine Urine specimen obtained by clean catch procedure / Unknown Non-blood Collection / Unknown 03/27/2025 3:56 PM EDT 03/27/2025 4:36 PM EDT Hank Sidhu LAB MICROBIOLOGY - GENERAL ORDERABLES Final Result Performing Organization Address [facility] Co de Phone Number [facility] [address] [place] [address], [place] [phone] from Last 3 Months Insurance MEDICAID - [place] [employer] MEDICARE Advance Directives Documents on File Type Date Recorded Patient Diamond Sander Expl anation Health Care Decision (hx) 09/03/2023 NANCY MCKENNA DIRECTIVE Care Teams Configuration Management Architect Relationship Specialty Start Date End Date Physician, Pcp Unknown PCP - General 03/27/25
--- OUTSIDE RECORDS SUMMARY | 2025-03-29 11:44 | XMS_ITS | Encounter Summary ---
Author Organization [facility] Address [id number] [place] [id number] Care Team Providers Care Casino Cage Manager Name Role Phone Physician, Pcp Unknown Primary Care Provider Estella vailable Reason for Visit * Reason Comments Urinary Frequency Frequently urinating Encounter Details Date Type Department Care Team (Late st Contact Info) Description 03/27/2025 8:56 PM EDT - 03/27/2025 9:36 PM EDT Emergency [facility] Emergency [address] [place] [address] Urinary frequency (Primary Dx) Discharge Disposition: Home or Self Care Social History Tobacco Use Types Packs/Day Years [...] on file Sexual Orientation Not on file documented as of this encounter Last Filed Vital Signs Vital Sign Reading [...] PM EDT Body Mass Index - - documented in this encounter Discharge Instructions * Discharge Instructions* BELA Jane - 03/27/2025 9:14 PM EDT You were evaluated in the emergency department today for frequent urination. As discussed I think this is due due to you being started on hydrochlorothiazide, this medication is a diuretic meaning itmakes you pee frequently. Your urine did not show any sign of infection. As discussed your potassium was slightly low, follow-up with your PCP as planned for outpatient labs and further management of this. Please followup with your primary care provider regarding this visit. Please return to the emergency department if you develop new or worsening symptoms. Thank you for coming to the [facility] Emergency Department today. Our entire team works together to provide you with the best care possible. Examination and treatment you received in the emergency department has been rendered on an EMERGENCY basis only. It is not intended to be a substitute for or an effort to provide complete medical care. You should follow-up with your primary care provider. Please report to your physician any new or remaining problems, because it is impossible to recognize and treat all elements of injury or illness in a single emergency department visit. If you do not have a primary care provider or require a referral, you may contact facilities [facility] for rehab medicine. In the event that you're unable to obtain a followup appointment in a timely fashion, OR youare not getting any better, OR you are getting worse, OR you develop any symptoms of concern, please return here immediately for further evaluation. The emergency department is open 24 hours a day, 7days a week. Your discharge report is based on information that was available when you were in the emergency department. If you do not have a primary care provider, please contact one of the following to make arrangements to follow up. [facility] * Attachments The following attachments cannot be sent through Care Everywhere. * Hydrochlorothiazide (Citizen Of [place]) documented in this encounter Discharge Disposition Disposition Code Departure Means Destination Comment s Home or Self Care documented in this encounter Progress Notes * Devika Jonas RN - 03/27/2025 2:39 PM EDT Patient complaints of urinary frequency since this am. Denies fever, body aches or chills. * EBLA Jane - 03/27/2025 2:34 PM EDT Emergency Medicine Note Patient Name: Marcelina Luque Initial Evaluation: 03/27/2025 : 1955 Patient's PCP: No primary care provider on file. Emergency Physician: BELA Jane History of Present Illness Chief Complaint: Chief Complaint Patient presents with Urinary Frequency Frequently urinating HPI: This is a 69-year-old female with a past medical history of hypertension, hyperlipidemia, GERD, peripheral edema, presents today with complaint of urinary frequency. Patient reports beginning today she has had increased thirst and urination. She reports she recently was switched from lisinopril to h ydrochlorothiazide due to high potassium and she has been taking any medication once weekly due to high potassium she is unsure of the name of this. She denies any burning with urination she denies history of frequent UTIs. She denies any recent fever chest pain shortness of breath nausea vomiting diarrhea abdominal pain or flank pain. She does report a history of nephrolithiasis in the past which did not present similarly. My record review patient is prescribed sodium polystyrene sulfonate 60 mL weekly for 4 weeks. Stated on 12.5 mg of hydrochlorothiazide on 03/14. ROS: I have performed a ROS with the pertinent positives and negatives documented in the history ofpresent illness. Previous History History reviewed. No pertinent past medical history. History reviewed. No pertinent surgical history. Social History Tobacco Use Smoking status: Never Smokeless tobacco: Never Substance Use Topics Alcohol use: Never Drug use: Never No family history on file. has No Known Allergies. No current facility-administered medications on file prior to encounter. No current outpatient medications on file prior to encounter. Physical Exam ED Triage Vitals [03/27/25 1452] Temp Heart Rate Resp BP 37.1 ??C (98.7 ??F) 79 18 135/74 SpO2 Temp Source Heart Rate Source Patient Position 96 % Oral Apical Sitting BP Location FiO2 (%) Left arm -- General: awake, calm, cooperative, in no acute distress. Skin: warm, dry, no diaphoresis. Eyes: PERRLA, EOMI. No conjunctival injection, no lid lag noted. ENMT: Oral mucosa is moist, normal phonation, managing secretions. Neck: Trachea midline, full range of motion. Respiratory: lungs clear to auscultation bilaterally, no increased work of breathing. Cardiovascular: regular rate and rhythm, no murmur, no peripheral edema. Equal pulses in all four extremities. Gastrointestinal: Soft, nondistended, nontender, without rebound tenderness or guarding. No CVA tenderness. +BS x4 MSK: 5/5 strength upper and lower extremities, extremities warm and well- perfused, sensation intactto light touch. No unilateral edema, no calf pain. Normal capillary refill time. Neurologic: Awake, alert, and oriented x3. No focal deficits. Psychiatric: Appropriate mood and affect Results Vitals: 03/27/25 1452 03/27/25 2035 BP: 135/74 128/69 BP Location: Left arm Patient Position: Sitting Pulse: 79 76 Resp: 18 16 Temp: 37.1 ??C (98.7 ??F) 36.9 ??C (98.4 ??F) TempSrc: Oral Oral SpO2: 96% 94% Height: 1.626 m (64 ) Labs Reviewed COMPREHENSIVE METABOLIC PANEL - Abnormal Result Value Sodium 140 Potassium 3.3 (*) Chloride 102 CO2 33 (*) Anion Gap 5 Glucose 112 (*) BUN 19 Creatinine 0.89 eGFR 69 BUN/Creatinine Ratio 21.3 Calcium 8.9 AST (SGOT) 11 ALT (SGPT) 17 Alkaline Phosphatase 156 (*) Total Protein 6.8 Albumin 3.4 Total Bilirubin 0.3 CBC WITH AUTO DIFFERENTIAL - Abnormal WBC 9.7 RBC 3.70 (*) Hemoglobin 12.3 Hematocrit 38.3 MCV 104.1 (*) MCH 33.4 (*) MCHC 32.1 RDW 14.0 Platelets 251 MPV 10.4 NRBC 0.0 NRBC Absolute 0.00 Neutrophils Relative 64.5 Lymphocytes Relative 22.9 Monocytes Relative 8.9 Eosinophils Relative 2.2 Basophils Relative 0.7 Immature Granulocytes Relative 0.8 Neutrophils Absolute 6.24 Lymphocytes Absolute 2.21 Monocytes Absolute 0.86 Eosinophils Absolute 0.21 Basophils Absolute 0.07 Immature Granulocytes Absolute 0.08 (*) URINALYSIS WITH REFLEX MICROSCOPIC AND CULTURE - Abnormal Specific [place] Urine 1.015 pH, Urine 6.0 Leukocytes, Urine Moderate (*) Nitrite, Urine Negative Protein, Urine Negative Glucose, Urine Negative Ketones, Urine Negative Urobilinogen, Urine 1.0 Bilirubin, Urine Negative Blood, Urine Negative RBC, Urine 2.3 WBC, Urine 19.5 (*) Squamous Epithelial, Urine 34 Bacteria, Urine Negative Hyaline Casts, Urine 1.2 CULTURE URINE CBC AND DIFFERENTIAL Narrative: The following orders were created for panel order CBC and differential. Procedure Abnormality Status --------- ------ CBC auto differential[[id number]] Abnormal Final result Please view results for these tests on the individual orders. URINALYSIS WITH REFLEX MICROSCOPIC AND CULTURE Narrative: The following orders were created for panel order Urinalysis with reflex microscopic and culture. Procedure Abnormality Status --------- ------ Urinalysis with reflex m...[[id number]] Abnormal Final result Kay urine culture tube[[id number]] Final result Please view results for these tests on the individual orders. Abnormal Labs Reviewed COMPREHENSIVE METABOLIC PANEL - Abnormal; Notable for the following components: Result Value Potassium 3.3 (*) CO2 33 (*) Glucose 112 (*) Alkaline Phosphatase 156 (*) All other components within normal limits CBC WITH AUTO DIFFERENTIAL - Abnormal; Notable for the following components: RBC 3.70 (*) MCV 104.1 (*) MCH 33.4 (*) Immature Granulocytes Absolute 0.08 (*) All other components within normal limits URINALYSIS WITH REFLEX MICROSCOPIC AND CULTURE - Abnormal; Notable for the following components: Leukocytes, Urine Moderate (*) WBC, Urine 19.5 (*) All other components within normal limits No orders to display EKG Interpretation Critical Care Time None ? Differential Diagnosis UTI, polyuria, urinary urgency, urinary frequency, stress incontinence, medication reaction Medical Decision Making This is a 69-year-old female presenting with urinary frequency. On exam patient is alert and oriented no acute distress she is hemodynamically stable and afebrile. Patient was recently initiated on hydrochlorothiazide as well as sodium polystyrene sulfonate 60 mL weekly for 4 weeks due to hyperkalemia she is being closely monitored by her PCP and has an upcoming appointment outpatient in 2 days. She does not have any burning with urination or suprapubic pain tenderness/flank pain. She does not have a history of frequent UTIs. Her exam is reassuring there is no abdominal pain no CVA tenderness. Labs are showing a potassium of 3.3, given patient is actively be treated for hyperkalemia I will d efer to her PCP for further management of this she sees them in 2 days and has out patient labs as well. Her UA shows WBCs and leuks it is contaminated with epithelials there is no bacteria no nitrates. Based on presentation I suspect patient has increased urination related to her recent initiationon hydrochlorothiazide, she was unaware that the medication would increase her urination. Will recommend discharge, continuing to take medications as prescribed and close PCP follow-up with strict return precautions. All questions asked and answered, patient agreeable with this plan. Medications - No data to display Clinical Impressions as of 03/27/252117 Urinary frequency Procedures Procedures Diagnosis 1. Urinary frequency Disposition Discharge ED Prescriptions None Physician Attestation BELA Jane 03/27/252117 BELA Jane 03/28/25 0653 Cosigned by Alphonse Singh MD at 03/28/2025 4:08 PM EDT Associated attestation - Alphonse Singh MD - 03/28/2025 4:08 PM EDT This is a split/shared visit with BELA Jane. I personally performed the medical decision making (MDM) for the care of this patient on 03/27/2025 as documented below 69-year-old female presents for urinary frequency. Patient recently switched from lisinopril to hydrochlorothiazide due to high potassium. Urinary output is a suspected side effect from this. Patientis also taking a oral potassium binder weekly. Potassium here was very mildly reduced at 3.3 without EKG changes. Discharged to follow with PCP. Alphonse Singh MD 03/28/25 4:08 PM EDT documented in this encounter Plan of Treatment Not on file documented as of this encounter Procedures Procedure Name Priority Date/Time Associated Diagnosis Comments CBC WITH AUTO DIFFERENTIAL STAT 03/27/2025 4:06 PM EDT CBC AND DIFFERENTIAL STAT 03/27/2025 4:06 PM EDT COMPREHENSIVE METABOLIC PANEL STAT 03/27/2025 4:06 PM EDT URINALYSIS WITH REFLEX MICROSCOPIC AND CULTURE STAT 03/27/2025 3:56 PM EDT KAY URINE CULTURE TUBE STAT 03/27/2025 3:56 PM EDT URINALYSIS WITH REFLEX MICROSCOPIC AND CULTURE STAT 03/27/2025 3:56 PM EDT CULTURE URINE STAT 03/27/2025 3:56 PM EDT documented in this encounter Results * (ABNORMAL) CBC auto differential (03/27/2025 4:06 PM EDT) WBC 9.7 4.8 - 10.8 K/mcL LAB HEMETOLOGY METHOD 03/27/2025 4:31 PM EDT [facility] RBC 3.70(L) 3.80 - 4.80 M/mcL LAB HEMETOLOGY METHOD 03/27/2025 4:31 PM EDT [facility] Hemoglobin 12.3 11.5 - 16.0 g/dL LAB HEMETOLOGY METHOD 03/27/2025 4:31 PM EDT [facility] Hematocrit 38.3 35.0 - 47.0 % LAB HEMETOLOGY METHOD 03/27/2025 4:31 PM EDT [facility] MCV 104.1(H) 79.0 - 98.0 FL LAB HEMETOLOGY METHOD 03/27/2025 4:31 PM EDT [facility] MCH 33.4(H) 27.0 - 32.0 pcg LAB HEMETOLOGY METHOD 03/27/2025 4:31 PM EDT [facility] MCHC 32.1 32.0 - 37.0 g/dL LAB [facility] RDW 14.0 11.0 - 15.0 % LAB HEMETOLOGY METHOD 03/27/2025 4:31 PM [facility] Platelets 251 130 - 400 K/mcL LAB HEMETOLOGY METHOD 03/27/2025 4:31 PM [facility] MPV 10.4 7.0 - 11.0 FL LAB HEMETOLOGY METHOD 03/27/2025 4:31 PM [facility] NRBC 0.0 <1.0 % LAB HEMETOLOGY METHOD 03/27/2025 4:31 PM [facility] NRBC Absolute 0.00 <0.10 K/mcL LAB HEMETOLOGY METHOD 03/27/2025 4:31 PM [facility] Neutrophils Relative 64.5 % LAB HEMETOLOGY METHOD 03/27/2025 4:31 PM [facility] Lymphocytes Relative 22.9 % LAB HEMETOLOGY METHOD 03/27/2025 4:31 PM [facility] Monocytes Relative 8.9 % LAB HEMETOLOGY METHOD 03/27/2025 4:31 PM [facility] Eosinophils Relative 2.2 % LAB HEMETOLOGY METHOD 03/27/2025 4:31 PM [facility] Basophils Relative 0.7 % LAB HEMETOLOGY METHOD 03/27/2025 4:31 PM [facility] Immature Granulocytes Relative 0.8 % LAB HEMETOLOGY METHOD 03/27/2025 4:31 PM [facility] Neutrophils Absolute 6.24 1.50 - 7.00 K/mcL LAB HEMETOLOGY METHOD 03/27/2025 4:31 PM [facility] Lymphocytes Absolute 2.21 1.00 - 5.00 K/mcL LAB HEMETOLOGY METHOD 03/27/2025 4:31 PM EDT [facility] Monocytes Absolute 0.86 0.20 - 1.00 K/mcL LAB HEMETOLOGY METHOD 03/27/2025 4:31 PM EDT [facility] Eosinophils Absolute 0.21 0.00 - 0.50 K/[facility] LAB HEMETOLOGY METHOD 03/27/2025 4:31 PM EDT [facility] Basophils Absolute 0.07 0.00 - 0.20 K/[facility] LAB HEMETOLOGY METHOD 03/27/2025 4:31 PM EDT [facility] Immature Granulocytes Absolute 0.08(H) 0.00 - 0.03 K/[facility] LAB HEMETOLOGY METHOD 03/27/2025 4:31 PM EDT [facility] Blood Venous blood specimen / Unknown Venipuncture / Unknown 03/27/2025 4:06 PM EDT 03/27/2025 4:23 PM EDT us Hank Sidhu DO LAB BLOOD ORDERABLES Final Result [facility] [address] [place] [address], * (ABNORMAL) Comprehensive metabolic panel (03/27/2025 4:06 PM EDT) Sodium 140 133 - 145 mmol/L LAB CHEMISTRY METHOD 03/27/2025 4:59 PM EDT [facility] Potassium 3.3(L) 3.5 - 5.5 mmol/L LAB CHEMISTRY METHOD 03/27/2025 4:59 PM EDT [facility] Chloride 102 96 - 110 mmol/L LAB CHEMISTRY METHOD 03/27/2025 4:59 PM EDT [facility] CO2 33(H) 21 - 32 mmol/L LAB CHEMISTRY METHOD 03/27/2025 4:59 PM [facility] Anion Gap 5 3 - 11 LAB CHEMISTRY METHOD 03/27/2025 4:59 PM [facility] Glucose 112(H) 70 - 100 mg/dL LAB CHEMISTRY METHOD 03/27/2025 4:59 PM [facility] BUN 19 5 - 25 mg/dL LAB CHEMISTRY METHOD 03/27/2025 4:59 PM [facility] Creatinine 0.89 0.50 - 1.10 mg/dL LAB CHEMISTRY METHOD 03/27/2025 4:59 PM [facility] eGFR 69 >=60 mL/min/1. 73m2 LAB CHEMISTRY METHOD 03/27/2025 4:59 PM [facility] Comment:Calculation based on the Chronic Kidney Disease Epidemiology Collaboration (CKD-EPI) equation refit without adjustment for race. BUN/Creatinine Ratio 21.3 LAB CHEMISTRY METHOD 03/27/2025 4:59 PM [facility] Calcium 8.9 8.5 - 10.5 mg/dL LAB CHEMISTRY METHOD 03/27/2025 4:59 PM [facility] AST (SGOT) 11 10 - 42 unit/L LAB CHEMISTRY METHOD 03/27/2025 4:59 PM [facility] ALT (SGPT) 17 10 - 60 unit/L LAB CHEMISTRY METHOD 03/27/2025 4:59 PM [facility] Alkaline Phosphatase 156(H) 42 - 121 unit/L LAB CHEMISTRY METHOD 03/27/2025 4:59 PM [facility] Total Protein 6.8 6.0 - 8.0 g/dL LAB CHEMISTRY METHOD 03/27/2025 4:59 PM [facility] Albumin 3.4 3.2 - 5.0 g/dL LAB CHEMISTRY METHOD 03/27/2025 4:59 PM [facility] Total Bilirubin 0.3 0.0 - 1.4 mg/dL LAB CHEMISTRY METHOD 03/27/2025 4:59 PM EDT [facility] Blood Venous blood specimen / Unknown Venipuncture / Unknown 03/27/2025 4:06 PM EDT 03/27/2025 4:23 PM EDT us Hank Sidhu DO LAB BLOOD ORDERABLES Final Result Performing Organization Address [facility]/ZIP Co de Phone Number [facility] [address] [place] [address], [place] [phone] * Culture urine (03/27/2025 3:56 PM EDT) Culture, Urine 10,000-49,000 CFU/mL Mixed urogenital charu, no uropathogens present. Suggest repeat specimen if clinically indicated. 03/28/2025 11:07 AM EDT [facility] Urine Urine specimen obtained by clean catch procedure / Unknown Non-blood Collection / Unknown 03/27/2025 3:56 PM EDT 03/27/2025 4:36 PM EDT us Hank Sidhu DO LAB MICROBIOLOGY - GENERAL ORDERABLES Final Result Performing Organization Address [facility] de Phone Number [facility] [address] [place] [address], [place] [phone] * Kay urine culture tube (03/27/2025 3:56 PM EDT) Extra Tube Hold for add-ons. 03/27/2025 6:01 PM EDT [facility] Comment:Auto resulted. Urine Urine specimen obtained by clean catch procedure / Unknown Non-blood Collection / Unknown 03/27/2025 3:56 PM EDT 03/27/2025 4:23 PM EDT us Hank C Cauchon DO LAB URINE ORDERABLES Final Result [facility] [address] [place] [address], [place] [phone] * (ABNORMAL) Urinalysis with reflex microscopic and culture (03/27/2025 3:56 PM EDT) Specific [place] Urine 1.015 1.003 - 1.030 LAB URINALYSIS - AUTOMATED METHOD 03/27/2025 4:36 PM EDT [facility] pH, Urine 6.0 5.0 - 8.0 pH LAB URINALYSIS - AUTOMATED METHOD 03/27/2025 4:36 PM [facility] Leukocytes, Urine Moderate(A) Negative LAB URINALYSIS - AUTOMATED METHOD 03/27/2025 4:36 PM [facility] Nitrite, Urine Negative Negative LAB URINALYSIS - AUTOMATED METHOD 03/27/2025 4:36 PM [facility] Protein, Urine Negative <=Trace mg/dL LAB URINALYSIS - AUTOMATED METHOD 03/27/2025 4:36 PM [facility] Glucose, Urine Negative Negative mg/dL LAB URINALYSIS - AUTOMATED METHOD 03/27/2025 4:36 PM [facility] Ketones, Urine Negative Negative mg/dL LAB URINALYSIS - AUTOMATED METHOD 03/27/2025 4:36 PM [facility] Urobilinogen , Urine 1.0 0.2 - 1.0 mg/dL LAB URINALYSIS - AUTOMATED METHOD 03/27/2025 4:36 PM [facility] Bilirubin, Urine Negative Negative LAB URINALYSIS - AUTOMATED METHOD 03/27/2025 4:36 PM [facility] Blood, Urine Negative Negative LAB URINALYSIS - AUTOMATED METHOD 03/27/2025 4:36 PM [facility] RBC, Urine 2.3 0 - 4 /HPF LAB URINALYSIS - AUTOMATED METHOD 03/27/2025 4:36 PM EDT [facility] WBC, Urine 19.5(H) 0 - 4 /HPF LAB URINALYSIS - AUTOMATED METHOD 03/27/2025 4:36 PM EDT [facility] Squamous Epithelial, Urine 34 0 - 60 /LPF LAB URINALYSIS - AUTOMATED METHOD 03/27/2025 4:36 PM EDT [facility] Bacteria, Urine Negative Negative /HPF LAB URINALYSIS - AUTOMATED METHOD 03/27/2025 4:36 PM EDT [facility] Hyaline Casts, Urine 1.2 0 - 3 /LPF LAB URINALYSIS - AUTOMATED METHOD 03/27/2025 4:36 PM EDT [facility] Urine Urine specimen obtained by clean catch procedure / Unknown Non-blood Collection / Unknown 03/27/2025 3:56 PM EDT 03/27/2025 4:23 PM EDT us Hank Sidhu DO LAB URINE ORDERABLES Final Result [facility] [address] [place] [address], documented in this encounter Visit Diagnoses Diagnosis Urinary frequency- Primary documented in this encounter Care Teams Casino Cage Manager Relationship Specialty Start Date End Date Physician, Pcp Unknown PCP - General 03/27/25 documented as of this encounter
== END 2025-03-29 12:04 | disposition home or self-care (01) ==
LOC: HO.HMCH 11:05
PROVIDERS: PCP Physician Assistant; Visit Provider Physician Assistant
DX: I50.32 Chronic diastolic (congestive) heart failure (principal); I27.20 Pulmonary hypertension, unspecified; E66.813 Obesity, class 3; Z68.41 Body mass index [BMI] 40.0-44.9, adult; I10 Essential (primary) hypertension; R60.0 Localized edema; E78.2 Mixed hyperlipidemia; R73.09 Other abnormal glucose; I89.0 Lymphedema, not elsewhere classified; E87.5 Hyperkalemia

== ENCOUNTER → 2025-03-29 11:04 | Outpatient (BNVA) | payer MEDICARE, SELFPAY | PROVIDERS: PCP Physician Assistant; Visit Provider Physician Assistant | DX: I11.0 Hypertensive heart disease with heart failure (principal); I50.32 Chronic diastolic (congestive) heart failure; I27.20 Pulmonary hypertension, unspecified; E66.813 Obesity, class 3; Z68.41 Body mass index [BMI] 40.0-44.9, adult; R60.0 Localized edema; E78.2 Mixed hyperlipidemia; R73.09 Other abnormal glucose; I89.0 Lymphedema, not elsewhere classified; E87.5 Hyperkalemia; Z71.3 Dietary counseling and surveillance | CPT/HCPCS: 96127; 99212 ==

== ENCOUNTER 2025-04-17 11:12 | Outpatient (AMB) | payer MEDICARE, SELFPAY ==
--- NOTE | 2025-04-17 11:14 | MHC.OFFVIS ---
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 Pt states she has had issues with her Left LE since she had a fall 15 yrs ago. 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 Complaints include pain, swelling of lower extremities, cramping, fatigue, and heaviness of the lower extremities. It has been affecting their daily activities including walking, standing, and physical activity. It is noted in both legs. She currently utilizes a wheelchair when needing to go further distances but does use a rolling walker at home. She states she has constant bilateral knee pain as well. She is currently on Lasix daily, which has not changed the swelling. She uses compression socks daily as well as elevation, which she states both help with the swelling. She has never been a smoker. She is not a diabetic. She has no hx of blood clots and there is no family hx of BC or clotting disorders. Patient denies any previous venous surgery or injections. Patient denies any history of DVT/ PE. Patient denies any history of phlebitis. Trial of compression includes - elevation and compression socks, both of which help They now present for vascular evaluation regarding their varicose veins. [facility] Medical History History of calculus of gallbladder Social History Housing: House Alcohol intake: never Patient Tobacco Use Status: Never used Tobacco e-Cigarette/Vaping Use: Never Used Second Hand Smoke Exposure: No service: No Current occupational status: disabled Cognitive needs: Yes (walker, wheelchair, cane ) Hearing needs: No Vision needs: Yes (reading glasses) Review of Systems Const Reports as per HPI and Denies weakness ENT Reports Normal hearing present and Denies dizziness Card Reports as per HPI, Denies chest pain, Denies chest pain at rest, Denies chest pain with activity, Denies dyspnea and Denies dyspnea on exertion Resp Reports as per HPI, Denies cough, Denies dyspnea and Denies dyspnea on exertion GI Reports as per HPI, Denies abdominal pain, Denies nausea and Denies vomiting Musc Denies numbness Skin/Breast Reports as per HPI, Denies erythema and Denies wounds Neuro Reports Normal hearing present, Denies dizziness, Denies numbness, Denies Sensory deficit (Neuro) and Denies weakness Psych Reports no additional complaints Endo Reports no additional complaints Physical Exam Vital Signs: BMI result Body Mass Index 43.0 Const General: healthy appearing and no acute distress Orientation/consciousness: patient oriented x3 HEENT Head: Yes normal to inspection Ears: hearing grossly normal bilaterally Mouth: Normal oral and palatal mucosa present Resp Effort & Inspection: normal respiratory effort and able to speak in complete sentences Auscultation: clear to auscultation bilaterally Cardio Jugular venous distension: no JVD Rate: regular rate Rhythm: regular rhythm Heart sounds: S1 normal heart sound present and S2 normal heart sound present Bruits: no abdominal aortic bruits, no carotid bruits, no femoral bruits and no renal bruits Peripheral pulses: Peripheral pulses 2+ throughout GI Inspection: Yes normal to inspection Palpation (GI): No Abdominal aortic bruit present Skin General skin exam: no rashes or lesions noted Wounds: no wounds Hair: normal Neuro General: patient oriented x3 Cranial nerves: Yes Normal hearing present Cognition (Neuro): normal cognition Gait exam (Neuro): Normal gait present Motor exam (neuro): 5/5 motor strength present throughout Sensory Exam: No Sensory deficit (Neuro) Extrem Other: Bilateral lower extremities: +3 pitting edema noted, from the feet to the knees. Discoloration noted around both ankles, slightly higher to the mid-calf on the right lower extremity. Faint but palpable DP pulses. No wounds noted. No lymphorrhea noted. No varicosities or tortuosities noted. CEAP: C - 4 E - primary A - superficial P - reflux General: Yes normal to inspection, Yes full ROM, Yes capillary refill normal and Yes normal gait Assessment & Plan Assessment & Plan (1) Varicose veins of both lower extremities with inflammation: Code(s): I83.11 - Varicose veins of right lower extremity with inflammation; I83.12 - Varicose veins of left lower extremity with inflammation Category: Medical Plan: Marcelina is presenting today on a referral from her PCP for concerns of ongoing bilateral lower extremity swelling and discomfort. She states this has been going on for years, but has been worsening. We discussed that the knee pain is likely not related to a vascular issue and she will need to get a referral to Ortho for evaluation of the pain. In short, the patient has evidence of venous insufficiency. I have discussed the pathophysiology with the patient. In addition I have provided informational material regarding venous disease to the patient. We have discussed conservative measures including compression, elevation, and exercise. I have also provided a handout regarding appropriate use of compression stockings and where to purchase good compression stockings as well. I have taken the liberty of ordering venous insufficiency testing with the patient. They will follow up with me after testing. The patient had an opportunity to ask questions regarding the treatment plan. All questions were answered. Imaging studies, laboratory studies and physical exam results were discussed and reviewed in detail. No major barriers to understanding were identified. The patient expressed understanding and agreement with the above treatment plan. The patient is aware they should contact our office by phone for worsening of the current condition or the appearance of new symptoms. Thank you for allowing me to participate in the vascular care of this patient. If you have any questions or concerns regarding the treatment for the above condition please do not hesitate to contact me. The office telephone contact is [phone]. This note is constructed using voice recognition software. While every effort has been made to ensure accuracy, flooring installer errors may have been included. Thank you for allowing me to participate in the care of your patient. Yours sincerely, BELA Graham Orders: Orders US venous duplex LE BI 1 Week I83.11 - Varicose veins of right lower extremity with inflammation, I83.12 - Varicose veins of left lower extremity with inflammation Coding Level of Care Code New Pt Level 4 (70958) Diagnoses Varicose veins of both lower extremities with inflammation I83.11; I83.12
[2025-04-17 11:15] VITALS: BMI 43.0
--- OUTSIDE RECORDS SUMMARY | 2025-04-17 13:26 | XMS_ITS | Clinical Summary ---
Author Organization [facility] Address [address] [place] [address] Phone Care Team Providers Care Assorter Laundry Name Role Phone Physician, Pcp Unknown Primary Care Provider Estella vailable Allergies No known active allergies Medications No known medications Active Problems No known active problems Encounters Date Type Department Care Team Description 03/27/2025 8:56 PM EDT - 03/27/2025 9:36 PM EDT Emergency [facility] Emergency [address] [place] [address] Urinary frequency (Primary Dx) Discharge [...] LAB HEMETOLOGY METHOD 03/27/2025 4:31 PM EDT [facility] RBC 3.70(L) 3.80 - 4.80 M/mcL LAB HEMETOLOGY METHOD 03/27/2025 4:31 PM EDT [facility] Hemoglobin 12.3 11.5 - 16.0 g/dL LAB HEMETOLOGY METHOD 03/27/2025 4:31 PM EDT [facility] Hematocrit 38.3 35.0 - 47.0 % LAB HEMETOLOGY METHOD 03/27/2025 4:31 PM EDT [facility] MCV 104.1(H) 79.0 - 98.0 FL LAB HEMETOLOGY METHOD 03/27/2025 4:31 PM EDT [facility] MCH 33.4(H) 27.0 - 32.0 pcg LAB HEMETOLOGY METHOD 03/27/2025 4:31 PM [facility] MCHC 32.1 32.0 - 37.0 g/dL LAB HEMETOLOGY METHOD 03/27/2025 4:31 PM EDT [facility] RDW 14.0 11.0 - 15.0 % LAB HEMETOLOGY METHOD 03/27/2025 4:31 PM [facility] Platelets 251 130 - 400 K/mcL LAB HEMETOLOGY METHOD 03/27/2025 4:31 PM [facility] MPV 10.4 7.0 - 11.0 FL LAB HEMETOLOGY METHOD 03/27/2025 4:31 PM [facility] NRBC 0.0 <1.0 % LAB HEMETOLOGY METHOD 03/27/2025 4:31 PM [facility] NRBC Absolute 0.00 <0.10 K/mcL LAB HEMETOLOGY METHOD 03/27/2025 4:31 PM [facility] Neutrophils Relative 64.5 % LAB HEMETOLOGY METHOD 03/27/2025 4:31 PM [facility] Lymphocytes Relative 22.9 % LAB HEMETOLOGY METHOD 03/27/2025 4:31 PM [facility] Monocytes Relative 8.9 % LAB HEMETOLOGY METHOD 03/27/2025 4:31 PM [facility] Eosinophils Relative 2.2 % LAB HEMETOLOGY METHOD 03/27/2025 4:31 PM [facility] Basophils Relative 0.7 % LAB HEMETOLOGY METHOD 03/27/2025 4:31 PM [facility] Immature Granulocytes Relative 0.8 % LAB HEMETOLOGY METHOD 03/27/2025 4:31 PM [facility] Neutrophils Absolute 6.24 1.50 - 7.00 K/mcL LAB HEMETOLOGY METHOD 03/27/2025 4:31 PM [facility] Lymphocytes Absolute 2.21 1.00 - 5.00 K/mcL LAB HEMETOLOGY METHOD 03/27/2025 4:31 PM [facility] Monocytes Absolute 0.86 0.20 - 1.00 K/mcL LAB HEMETOLOGY METHOD 03/27/2025 4:31 PM EDT [facility] Eosinophils Absolute 0.21 0.00 - 0.50 K/[facility] LAB HEMETOLOGY METHOD 03/27/2025 4:31 PM EDT [facility] Basophils Absolute 0.07 0.00 - 0.20 K/[facility] LAB HEMETOLOGY METHOD 03/27/2025 4:31 PM EDT [facility] Immature Granulocytes Absolute 0.08(H) 0.00 - 0.03 K/[facility] LAB HEMETOLOGY METHOD 03/27/2025 4:31 PM EDT [facility] Blood Venous blood specimen / Unknown Venipuncture / Unknown 03/27/2025 4:06 PM EDT 03/27/2025 4:23 PM EDT us Hank Sidhu DO LAB BLOOD ORDERABLES Final Result [facility] [address] [place] [address], * (ABNORMAL) Comprehensive metabolic panel (03/27/2025 4:06 PM EDT) Sodium 140 133 - 145 mmol/L LAB CHEMISTRY METHOD 03/27/2025 4:59 PM EDT [facility] Potassium 3.3(L) 3.5 - 5.5 mmol/L LAB CHEMISTRY METHOD 03/27/2025 4:59 PM EDT [facility] Chloride 102 96 - 110 mmol/L LAB CHEMISTRY METHOD 03/27/2025 4:59 PM EDT [facility] CO2 33(H) 21 - 32 mmol/L LAB CHEMISTRY METHOD 03/27/2025 4:59 PM EDT [facility] Anion Gap 5 3 - 11 LAB CHEMISTRY METHOD 03/27/2025 4:59 PM EDT [facility] Glucose 112(H) 70 - 100 mg/dL LAB CHEMISTRY METHOD 03/27/2025 4:59 PM [facility] BUN 19 5 - 25 mg/dL LAB CHEMISTRY METHOD 03/27/2025 4:59 PM [facility] Creatinine 0.89 0.50 - 1.10 mg/dL LAB CHEMISTRY METHOD 03/27/2025 4:59 PM [facility] eGFR 69 >=60 mL/min/1. 73m2 LAB CHEMISTRY METHOD 03/27/2025 4:59 PM [facility] Comment:Calculation based on the Chronic Kidney Disease Epidemiology Collaboration (CKD-EPI) equation refit without adjustment for race. BUN/Creatinine Ratio 21.3 LAB CHEMISTRY METHOD 03/27/2025 4:59 PM [facility] Calcium 8.9 8.5 - 10.5 mg/dL LAB CHEMISTRY METHOD 03/27/2025 4:59 PM [facility] AST (SGOT) 11 10 - 42 unit/L LAB CHEMISTRY METHOD 03/27/2025 4:59 PM [facility] ALT (SGPT) 17 10 - 60 unit/L LAB CHEMISTRY METHOD 03/27/2025 4:59 PM [facility] Alkaline Phosphatase 156(H) 42 - 121 unit/L LAB CHEMISTRY METHOD 03/27/2025 4:59 PM [facility] Total Protein 6.8 6.0 - 8.0 g/dL LAB CHEMISTRY METHOD 03/27/2025 4:59 PM [facility] Albumin 3.4 3.2 - 5.0 g/dL LAB CHEMISTRY METHOD 03/27/2025 4:59 PM [facility] Total Bilirubin 0.3 0.0 - 1.4 mg/dL LAB CHEMISTRY METHOD 03/27/2025 4:59 PM [facility] Blood Venous blood specimen / Unknown Venipuncture / Unknown 03/27/2025 4:06 PM EDT 03/27/2025 4:23 PM EDT us Hank Sidhu DO LAB BLOOD ORDERABLES Final Result [facility] [address] [place] [address], [place] [phone] * (ABNORMAL) Urinalysis with reflex microscopic and culture (03/27/2025 3:56 PM EDT) Pathologist [facility] [address] Urine 1.015 1.003 - 1.030 LAB URINALYSIS - AUTOMATED METHOD 03/27/2025 4:36 PM EDT [facility] pH, Urine 6.0 5.0 - 8.0 pH LAB URINALYSIS - AUTOMATED METHOD 03/27/2025 4:36 PM [facility] Leukocytes, Urine Moderate(A) Negative LAB URINALYSIS - AUTOMATED METHOD 03/27/2025 4:36 PM T [facility] Nitrite, Urine Negative Negative LAB URINALYSIS - AUTOMATED METHOD 03/27/2025 4:36 PM T [facility] Protein, Urine Negative <=Trace mg/dL LAB URINALYSIS - AUTOMATED METHOD 03/27/2025 4:36 PM T [facility] Glucose, Urine Negative Negative mg/dL LAB URINALYSIS - AUTOMATED METHOD 03/27/2025 4:36 PM T [facility] Ketones, Urine Negative Negative mg/dL LAB URINALYSIS - AUTOMATED METHOD 03/27/2025 4:36 PM [facility] Urobilinogen , Urine 1.0 0.2 - 1.0 mg/dL LAB URINALYSIS - AUTOMATED METHOD 03/27/2025 4:36 PM [facility] Bilirubin, Urine Negative Negative LAB URINALYSIS - AUTOMATED METHOD 03/27/2025 4:36 PM [facility] Blood, Urine Negative Negative LAB URINALYSIS - AUTOMATED METHOD 03/27/2025 4:36 PM EDT [facility] RBC, Urine 2.3 0 - 4 /HPF LAB URINALYSIS - AUTOMATED METHOD 03/27/2025 4:36 PM EDT [facility] WBC, Urine 19.5(H) 0 - 4 /HPF LAB URINALYSIS - AUTOMATED METHOD 03/27/2025 4:36 PM EDT [facility] Squamous Epithelial, Urine 34 0 - 60 /LPF LAB URINALYSIS - AUTOMATED METHOD 03/27/2025 4:36 PM EDT [facility] Bacteria, Urine Negative Negative /HPF LAB URINALYSIS - AUTOMATED METHOD 03/27/2025 4:36 PM EDT [facility] Hyaline Casts, Urine 1.2 0 - 3 /LPF LAB URINALYSIS - AUTOMATED METHOD 03/27/2025 4:36 PM EDT [facility] Urine Urine specimen obtained by clean catch procedure / Unknown Non-blood Collection / Unknown 03/27/2025 3:56 PM EDT 03/27/2025 4:23 PM EDT us Hank Sidhu DO LAB URINE ORDERABLES Final Result [facility] [address] [place] [address], [place] [phone] * Kay urine culture tube (03/27/2025 3:56 PM EDT) Extra Tube Hold for add-ons. 03/27/2025 6:01 PM EDT [facility] Comment:Auto resulted. Urine Urine specimen obtained by clean catch procedure / Unknown Non-blood Collection / Unknown 03/27/2025 3:56 PM EDT 03/27/2025 4:23 PM EDT us Hank Sidhu DO LAB URINE ORDERABLES Final Result Performing Organization Address City/[facility]/ZIP Co de Phone Number [facility] [address] [place] [address], [place] [phone] * Culture urine (03/27/2025 3:56 PM EDT) Culture, Urine 10,000-49,000 CFU/mL Mixed urogenital charu, no uropathogens present. Suggest repeat specimen if clinically indicated. 03/28/2025 11:07 AM EDT [facility] Urine Urine specimen obtained by clean catch procedure / Unknown Non-blood Collection / Unknown 03/27/2025 3:56 PM EDT 03/27/2025 4:36 PM EDT Hank Sidhu LAB MICROBIOLOGY - GENERAL ORDERABLES Final Result Performing Organization Address [facility] Co de Phone Number [facility] [address] [place] [address], [place] [phone] from Last 3 Months Insurance MEDICAID - [place] [employer] MEDICARE Advance Directives Documents on File Type Date Recorded 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
== END 2025-04-17 11:49 | disposition home or self-care (01) ==
LOC: HO.HVS 11:12
PROVIDERS: PCP Physician Assistant; Visit Provider Physician Assistant Surgical
DX: I83.11 Varicose veins of right lower extremity with inflammation (principal); I83.12 Varicose veins of left lower extremity with inflammation
CPT/HCPCS: 99204

== ENCOUNTER → 2025-04-17 11:12 | Outpatient (BNVA) | payer MEDICARE, SELFPAY | PROVIDERS: PCP Physician Assistant; Visit Provider Physician Assistant Surgical | DX: I83.11 Varicose veins of right lower extremity with inflammation (principal); I83.12 Varicose veins of left lower extremity with inflammation | CPT/HCPCS: 99202 ==

== ENCOUNTER 2025-05-30 09:40 | Outpatient (AMB) | payer MEDICARE, SELFPAY ==
[2025-05-30 09:59] VITALS: BP 130/74; RESP 86; BMI 42.7
--- NOTE | 2025-05-30 09:59 | A.OFFVIS_ITS ---
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 rhamnosus GG-inulin 12 billion cell -200 mg 1 cap PO DAILY multivit with min-folic acid 200 mcg 1 tab PO DAILY omeprazole 40 mg PO DAILY simvastatin 40 mg PO BEDTIME sodium polystyrene sulf-sorbtl 15-20 gram/60 mL 60 mL PO .once per week 4 weeks HPI Comments Details: Marcelina was referred here for evaluation for possible CHF. Carries a diagnose of heart failure preserved ejection fraction based on hospitalization [facility] couple years ago. Since then she was followed at [facility] for cardiology and now is referred here for further evaluation. Patient is not low-dose Lasix therapy. She had also hydrochlorothiazide therapy which was recently added after she developed hyperkalemia related to lisinopril therapy. Patient is very poor overall functional status due to arthritis. She says she is not able to walk long distances due to knee pain. However she denies any symptoms of shortness of breath, orthopnea, PND. She has chronic leg swelling related to lymphedema. She says in the past she was diagnose with sleep apnea but more recently she has lost weight and does not think that she has sleep apnea. She has not been tested for the same. Also there has a diagnose of pulmonary hypertension and reported as severe pulmonary hypertension although last echocardiogram from [facility] the right-sided function appear to be normal with no significant flattening of the interventricular septum and RV systolic pressure was not calculated on this study due to limited quality of study. She denies any prolonged palpitation irregular heartbeat. [facility] Medical History History of calculus of gallbladder Social History Housing: House Alcohol intake: never Patient Tobacco Use Status: Never used Tobacco e-Cigarette/Vaping Use: Never Used Second Hand Smoke Exposure: No service: No Current occupational status: disabled Cognitive needs: Yes (walker, wheelchair, cane ) Hearing needs: No Vision needs: Yes (reading glasses) Review of Systems Const Denies chills, Denies daytime sleepiness, Denies fatigue, Denies fever(s), Denies frequent falls, Denies poor appetite, Denies snoring, Denies stops breathing during sleep, Denies weakness, Denies weight gain and Denies weight loss Eyes Denies loss of vision ENT Denies dizziness and Denies hearing loss Card Denies chest pain, Denies claudication, Reports leg edema, Denies lightheadedness, Denies palpitations, Denies dyspnea, Denies dyspnea on exertion and Denies orthopnea Resp Denies cough, Denies excessive phlegm production, Denies dyspnea, Denies dyspnea on exertion, Denies snoring and Denies wheezing GI Denies abdominal pain, Denies hematochezia, Denies change in bowel habits, Denies nausea and Denies vomiting Denies urinary frequency and Denies dysuria Musc Denies arthralgias, Denies muscle weakness, Denies numbness and Denies other (frequent falls) Skin/Breast Denies nail changes and Denies rash Neuro Denies Abnormal speech present, Denies dizziness, Denies frequent falls, Denies loss of vision, Denies memory loss, Denies numbness and Denies weakness Psych Denies depression and Denies memory loss Endo Denies fatigue and Denies palpitations Deangelo/Lymph Reports easy bruising and Reports other (anemia) Aller/Immun Denies wheezing Physical Exam Vital Signs: Last Vital Signs Resp 86 H 05/30/25 09:59 BP 130/74 05/30/25 09:59 BMI result Body Mass Index 42.7 Const General: cooperative, comfortable, no acute distress, alert and awake Nutritional Appearance: obese morbidly obese Orientation/consciousness: patient oriented x3 Limitations: wheelchair HEENT Head: Yes normocephalic and Yes atraumatic Neck Neck: Yes trachea midline, Yes supple and Yes no JVD Resp Effort & Inspection: normal respiratory effort Auscultation: clear to auscultation bilaterally Cardio Jugular venous distension: no JVD Palpation: normal PMI Rate: regular rate Rhythm: regular rhythm Heart sounds: S1 normal heart sound present, S2 normal heart sound present, no click, no gallops and no murmurs GI Auscultation: normal bowel sounds Skin General skin exam: no rashes or lesions noted Neuro General: patient oriented x3 and no focal motor deficits Speech: No Abnormal speech present Extrem General: No clubbing, No cyanosis and Yes other (Bilateral swelling suggestive of lymphedema) Office Procedures EKG Details: EKG shows normal sinus rhythm normal EKG. 87550-[id number], Complete Assessment & Plan Assessment & Plan (1) CHF (congestive heart failure), NYHA class II: Code(s): I50.9 - Heart failure, unspecified Category: Medical Qualifiers: Congestive heart failure type: diastolic Congestive heart failure chronicity: chronic Qualified Code(s): I50.32 - Chronic diastolic (congestive) heart failure Plan: Patient with prior history of congestive heart failure although clinically today appears to be euvolemic well compensated, possible related to low-dose Lasix therapy. She does have bilateral significant lymphedema which needs to be treated separately as directed. We discussed about lymphedema related to sedentary lifestyle as well as with leg dependent position. Leg elevation was suggested. Compression venous stocking in his suggested. She is on dual diuretic therapy at this point time which could potentially lead to electrolyte imbalance. I would switch her to adjust diuretic therapy with Lasix and stop hydrochlorothiazide therapy. Continue aggressive blood pressure control. Clinically does not appear to have any significant symptoms of heart failure although she is at risk for significant sleep apnea and should pursue sleep study. Also suggest echocardiogram to evaluate LV systolic and diastolic function to evaluate for pulmonary hypertension. This is will be scheduled in near future. Aggressive weight loss program should help her significantly. Will follow up with her as need be. Thank you for allowing me to partake in her care Orders: Orders CA echo transthoracic complete Today I50.32 - Chronic diastolic (congestive) heart failure Coding Level of Care Code New Pt Level 4 (89032) Complex EM visit Add On G2211 Diagnoses Chronic diastolic congestive heart failure, NYHA class 2 I50.32 Congestive heart failure type: diastolic Congestive heart failure chronicity: chronic CPT Codes EKG - CPT: 99396-[id number], Complete ([id number])
--- OUTSIDE RECORDS SUMMARY | 2025-05-30 10:14 | XMS_ITS | Clinical Summary ---
Author Organization [facility] Address [address] [place] [address] Phone Care Team Providers Care Advertisement Distributor Name Role Phone Physician, Pcp Unknown Primary Care Provider Estella vailable Allergies No known active allergies Medications No known medications Active Problems No known active problems Encounters Date Type Department Care Team Description 03/27/2025 8:56 PM EDT - 03/27/2025 9:36 PM EDT Emergency [facility] Emergency [address] [place] [address] Urinary frequency (Primary Dx) Discharge [...] 76 03/27/2025 8:35 PM EDT Temperature 36.9 C (98.4 F) 03/27/2025 8:35 PM EDT Respiratory Rate 16 03/27/2025 8:35 PM EDT [...] 05/24/2015 03/29/2015 Cholesterol Screening (Lipid Panel) 10/11/2022 Hepatitis C Screening 10/11/2022 Medicare Annual Wellness Visit 10/11/2022 Osteoporosis Screening (Bone Density Screening) 10/11/2022 Social Influencers of Health Screening 10/11/2022 COVID-19 Vaccine (1 - 2023-2 5 season) 2024 Depression Screening 11/08/2024 Influenza Vaccine (#1) 2025 09/17/2016 Falls Risk Assessment 03/27/2026 03/27/2025 [...] LAB HEMETOLOGY METHOD 03/27/2025 4:31 PM EDT [facility] RBC 3.70(L) 3.80 - 4.80 M/mcL LAB HEMETOLOGY METHOD 03/27/2025 4:31 PM EDT [facility] Hemoglobin 12.3 11.5 - 16.0 g/dL LAB HEMETOLOGY METHOD 03/27/2025 4:31 PM EDT [facility] Hematocrit 38.3 35.0 - 47.0 % LAB HEMETOLOGY METHOD 03/27/2025 4:31 PM EDT [facility] MCV 104.1(H) 79.0 - 98.0 FL LAB HEMETOLOGY METHOD 03/27/2025 4:31 PM EDT [facility] MCH 33.4(H) 27.0 - 32.0 pcg LAB HEMETOLOGY [facility] MCHC 32.1 32.0 - 37.0 g/dL LAB HEMETOLOGY METHOD 03/27/2025 4:31 PM [facility] RDW 14.0 11.0 - 15.0 % LAB HEMETOLOGY METHOD 03/27/2025 4:31 PM [facility] Platelets 251 130 - 400 K/mcL LAB HEMETOLOGY METHOD 03/27/2025 4:31 PM [facility] MPV 10.4 7.0 - 11.0 FL LAB HEMETOLOGY METHOD 03/27/2025 4:31 PM [facility] NRBC 0.0 <1.0 % LAB HEMETOLOGY METHOD 03/27/2025 4:31 PM [facility] NRBC Absolute 0.00 <0.10 K/mcL LAB HEMETOLOGY METHOD 03/27/2025 4:31 PM [facility] Neutrophils Relative 64.5 % LAB HEMETOLOGY METHOD 03/27/2025 4:31 PM [facility] Lymphocytes Relative 22.9 % LAB HEMETOLOGY METHOD 03/27/2025 4:31 PM [facility] Monocytes Relative 8.9 % LAB HEMETOLOGY METHOD 03/27/2025 4:31 PM [facility] Eosinophils Relative 2.2 % LAB HEMETOLOGY METHOD 03/27/2025 4:31 PM [facility] Basophils Relative 0.7 % LAB HEMETOLOGY METHOD 03/27/2025 4:31 PM [facility] Immature Granulocytes Relative 0.8 % LAB HEMETOLOGY METHOD 03/27/2025 4:31 PM [facility] Neutrophils Absolute 6.24 1.50 - 7.00 K/mcL LAB HEMETOLOGY METHOD 03/27/2025 4:31 PM [facility] Lymphocytes Absolute 2.21 1.00 - 5.00 K/mcL LAB HEMETOLOGY METHOD 03/27/2025 4:31 PM [facility] Monocytes Absolute 0.86 0.20 - 1.00 K/mcL LAB HEMETOLOGY METHOD 03/27/2025 4:31 PM EDT [facility] Eosinophils Absolute 0.21 0.00 - 0.50 K/[facility] LAB HEMETOLOGY METHOD 03/27/2025 4:31 PM EDT [facility] Basophils Absolute 0.07 0.00 - 0.20 K/[facility] LAB HEMETOLOGY METHOD 03/27/2025 4:31 PM EDT [facility] Immature Granulocytes Absolute 0.08(H) 0.00 - 0.03 K/[facility] LAB HEMETOLOGY METHOD 03/27/2025 4:31 PM EDT [facility] Blood Venous blood specimen / Unknown Venipuncture / Unknown 03/27/2025 4:06 PM EDT 03/27/2025 4:23 PM EDT us Hank Sidhu DO LAB BLOOD ORDERABLES Final Result [facility] [address] [place] [address], * (ABNORMAL) Comprehensive metabolic panel (03/27/2025 4:06 PM EDT) Sodium 140 133 - 145 mmol/L LAB CHEMISTRY METHOD 03/27/2025 4:59 PM EDT [facility] Potassium 3.3(L) 3.5 - 5.5 mmol/L LAB CHEMISTRY METHOD 03/27/2025 4:59 PM T [facility] Chloride 102 96 - 110 mmol/L LAB CHEMISTRY METHOD 03/27/2025 4:59 PM EDT [facility] CO2 33(H) 21 - 32 mmol/L LAB CHEMISTRY METHOD 03/27/2025 4:59 PM EDT [facility] Anion Gap 5 3 - 11 LAB CHEMISTRY METHOD 03/27/2025 4:59 PM EDT [facility] Glucose 112(H) 70 - 100 mg/dL LAB CHEMISTRY METHOD 03/27/2025 4:59 PM [facility] BUN 19 5 - 25 mg/dL LAB CHEMISTRY METHOD 03/27/2025 4:59 PM [facility] Creatinine 0.89 0.50 - 1.10 mg/dL LAB CHEMISTRY METHOD 03/27/2025 4:59 PM [facility] eGFR 69 >=60 mL/min/1. 73m2 LAB CHEMISTRY METHOD 03/27/2025 4:59 PM [facility] Comment:Calculation based on the Chronic Kidney Disease Epidemiology Collaboration (CKD-EPI) equation refit without adjustment for race. BUN/Creatinine Ratio 21.3 LAB CHEMISTRY METHOD 03/27/2025 4:59 PM [facility] Calcium 8.9 8.5 - 10.5 mg/dL LAB CHEMISTRY METHOD 03/27/2025 4:59 PM [facility] AST (SGOT) 11 10 - 42 unit/L LAB CHEMISTRY METHOD 03/27/2025 4:59 PM [facility] ALT (SGPT) 17 10 - 60 unit/L LAB CHEMISTRY METHOD 03/27/2025 4:59 PM [facility] Alkaline Phosphatase 156(H) 42 - 121 unit/L LAB CHEMISTRY METHOD 03/27/2025 4:59 PM [facility] Total Protein 6.8 6.0 - 8.0 g/dL LAB CHEMISTRY METHOD 03/27/2025 4:59 PM [facility] Albumin 3.4 3.2 - 5.0 g/dL LAB CHEMISTRY METHOD 03/27/2025 4:59 PM [facility] Total Bilirubin 0.3 0.0 - 1.4 mg/dL LAB CHEMISTRY METHOD 03/27/2025 4:59 PM [facility] Blood Venous blood specimen / Unknown Venipuncture / Unknown 03/27/2025 4:06 PM EDT 03/27/2025 4:23 PM EDT us Hank Sidhu DO LAB BLOOD ORDERABLES Final Result [facility] [address] [place] [address], [place] [phone] * (ABNORMAL) Urinalysis with reflex microscopic and culture (03/27/2025 3:56 PM EDT) Pathologist [facility] Specific [place] Urine 1.015 1.003 - 1.030 LAB URINALYSIS - AUTOMATED METHOD 03/27/2025 4:36 PM EDT [facility] pH, Urine 6.0 5.0 - 8.0 pH LAB URINALYSIS - AUTOMATED METHOD 03/27/2025 4:36 PM [facility] Leukocytes, Urine Moderate(A) Negative LAB URINALYSIS - AUTOMATED METHOD 03/27/2025 4:36 PM [facility] Nitrite, Urine Negative Negative LAB URINALYSIS - AUTOMATED METHOD 03/27/2025 4:36 PM T [facility] Protein, Urine Negative <=Trace mg/dL LAB URINALYSIS - AUTOMATED METHOD 03/27/2025 4:36 PM [facility] Glucose, Urine Negative Negative mg/dL LAB URINALYSIS - AUTOMATED METHOD 03/27/2025 4:36 PM T [facility] Ketones, Urine Negative Negative mg/dL LAB URINALYSIS - AUTOMATED METHOD 03/27/2025 4:36 PM [facility] Urobilinogen , Urine 1.0 0.2 - 1.0 mg/dL LAB URINALYSIS - AUTOMATED METHOD 03/27/2025 4:36 PM [facility] Bilirubin, Urine Negative Negative LAB URINALYSIS - AUTOMATED METHOD 03/27/2025 4:36 PM [facility] Blood, Urine Negative Negative LAB URINALYSIS - AUTOMATED METHOD 03/27/2025 4:36 PM EDT [facility] RBC, Urine 2.3 0 - 4 /HPF LAB URINALYSIS - AUTOMATED METHOD 03/27/2025 4:36 PM T [facility] WBC, Urine 19.5(H) 0 - 4 /HPF LAB URINALYSIS - AUTOMATED METHOD 03/27/2025 4:36 PM EDT [facility] Squamous Epithelial, Urine 34 0 - 60 /LPF LAB URINALYSIS - AUTOMATED METHOD 03/27/2025 4:36 PM T [facility] Bacteria, Urine Negative Negative /HPF LAB URINALYSIS - AUTOMATED METHOD 03/27/2025 4:36 PM [facility] Hyaline Casts, Urine 1.2 0 - 3 /LPF LAB URINALYSIS - AUTOMATED METHOD 03/27/2025 4:36 PM T [facility] Urine Urine specimen obtained by clean catch procedure / Unknown Non-blood Collection / Unknown 03/27/2025 3:56 PM EDT 03/27/2025 4:23 PM EDT us Hank Sidhu DO LAB URINE ORDERABLES Final Result [facility] [address] [place] [address], * Kay urine culture tube (03/27/2025 3:56 PM EDT) Extra Tube Hold for add-ons. 03/27/2025 6:01 PM EDT [facility] Comment:Auto resulted. Urine Urine specimen obtained by clean catch procedure / Unknown Non-blood Collection / Unknown 03/27/2025 3:56 PM EDT 03/27/2025 4:23 PM EDT us Hank Sidhu DO LAB URINE ORDERABLES Final Result Performing Organization Address City/[facility]/ZIP Co de Phone Number [facility] [address] [place] [address], [place] [phone] * Culture urine (03/27/2025 3:56 PM EDT) Culture, Urine 10,000-49,000 CFU/mL Mixed urogenital charu, no uropathogens present. Suggest repeat specimen if clinically indicated. 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
== END 2025-05-30 10:29 | disposition home or self-care (01) ==
LOC: HO.HCS 09:41
PROVIDERS: PCP Physician Assistant; Visit Provider Internal Medicine Cardiovascular Disease
DX: I50.32 Chronic diastolic (congestive) heart failure (principal)
CPT/HCPCS: 93010; 99204; G2211

== ENCOUNTER → 2025-05-30 09:40 | Outpatient (BNVA) | payer MEDICARE, SELFPAY | PROVIDERS: PCP Physician Assistant; Visit Provider Internal Medicine Cardiovascular Disease | DX: I50.32 Chronic diastolic (congestive) heart failure (principal) | CPT/HCPCS: 93005; 99202 ==

== ENCOUNTER 2025-06-06 09:54 | Outpatient (REF) | payer MEDICARE, SELFPAY ==
--- NOTE | ~2025-06-06 | US_ITS ---
EXAMINATION: US LOWER EXTREMITY VENOUS (REFLUX EXAM), BILATERAL CLINICAL INFORMATION: Varices. COMPARISON: None. TECHNIQUE: Color flow triplex imaging and compression Doppler was performed to evaluate both the deep and the superficial systems bilaterally. To evaluate the superficial system, the examination was performed in the upright position. Color-flow Doppler ultrasound and compression ultrasound were utilized. In addition, maneuvers were utilized to demonstrate reflux. FINDINGS: 1. DEEP VENOUS ULTRASOUND OF THE RIGHT LOWER EXTREMITY: Common Femoral Vein: Compressible, normal respiratory variation and augmented flow. Femoral Vein: Compressible, normal color flow and augmentation. Popliteal Vein: Compressible, normal augmentation. Deep Reflux: There is no evidence of reflux in the deep system in either the common femoral vein, superficial femoral or the popliteal vein. There is no evidence of a Jonas's cyst. 2. SUPERFICIAL ULTRASOUND WITH DOPPLER OF RIGHT LOWER EXTREMITY: GREAT SAPHENOUS VEIN: Saphenofemoral Junction: 0.7 cm; Reflux: 0 ms Proximal Thigh: 0.9 cm; Reflux: 0 ms Mid Thigh: 0.7 cm; Reflux: 0 ms Distal Thigh: 0.7 cm; Reflux: 0 ms At Knee: 0.7 cm; Reflux: 0 ms Proximal Calf: 0.3 cm; Reflux: 0 ms Mid Calf: 0.5 cm; Reflux: 1184 ms Distal Calf: 0.4 cm; Reflux: 0 ms DUPLICATED MEDIAL GREAT SAPHENOUS VEIN: Diameter: 0.5-0.6 cm. Reflux: NA DUPLICATED LATERAL GREAT SAPHENOUS VEIN: Diameter: None imaged Reflux: NA SMALL SAPHENOUS VEIN: Saphenopopliteal Junction: 0.3 cm; Reflux: 0 ms Proximal: 0.4 cm; Reflux: 0 ms Distal: 0.3 cm; Reflux: 0 ms VEIN OF GIACOMINI: Size: NA Reflux: NA PERFORATORS: Location: Proximal calf. Size: 0.3 cm. Reflux: NA VARICOSITIES: Location: Proximal to distal thigh and proximal calf. Size: 0.3-0.5 cm. Reflux: NA 3. DEEP VENOUS ULTRASOUND OF THE LEFT LOWER EXTREMITY: Common Femoral Vein: Compressible, normal respiratory variation and augmented flow. Femoral Vein: Compressible, normal color flow and augmentation. Popliteal Vein: Compressible, normal augmentation. Deep Reflux: There is no evidence of reflux in the deep system in either the common femoral vein, superficial femoral or the popliteal vein. There is no evidence of a Joans's cyst. 4. SUPERFICIAL ULTRASOUND WITH DOPPLER OF LEFT LOWER EXTREMITY: GREAT SAPHENOUS VEIN: Saphenofemoral Junction: 1.1 cm; Reflux: 0 ms Proximal Thigh: 1.0 cm; Reflux: 0 ms Mid Thigh: 0.5 cm; Reflux: 0 ms Distal Thigh: 0.5 cm; Reflux: 0 ms At Knee: 0.6 cm; Reflux: 1120 ms Proximal Calf: 0.5 cm; Reflux: 0 ms Mid Calf: 0.4 cm; Reflux: 0 ms Distal Calf: 0.3 cm; Reflux: 0 ms DUPLICATED MEDIAL GREAT SAPHENOUS VEIN: Diameter: None imaged Reflux: NA DUPLICATED LATERAL GREAT SAPHENOUS VEIN: Diameter: 0.6-0.7 cm. Reflux: NA SMALL SAPHENOUS VEIN: Saphenopopliteal Junction: 0.4 cm; Reflux: 0 ms Proximal: 0.5 cm; Reflux: 0 ms Distal: 0.4 cm; Reflux: 1300 ms VEIN OF GIACOMINI: Size: 0.5 cm. Reflux: NA PERFORATORS: Location: Proximal and distal calf. Size: 0.3 cm. Reflux: NA VARICOSITIES: Location: Proximal and distal thigh. Proximal calf. Size: 0.4-0.6 cm. Reflux: NA US/US venous insuf bilat IMPRESSION: Right: Venous insufficiency, great saphenous vein at the mid calf. Varices and perforators without reflux. Left: Venous insufficiency, great saphenous vein at the knee. Venous insufficiency, small saphenous vein at the distal calf. Perforators and varices without reflux. Electronically signed by: Jomar Yusuf MD 06/06/2025 11:34 AM EDT
--- OUTSIDE RECORDS SUMMARY | 2025-06-06 10:38 | XMS_ITS | Clinical Summary ---
Author Organization [facility] Address [address] [place] [address] Phone Care Team Providers Care Pile Fabric Knitter Name Role Phone Physician, Pcp Unknown Primary Care Provider Estella vailable Allergies No known active allergies Medications No known medications Active Problems No known active problems Encounters Date Type Department Care Team Description 03/27/2025 8:56 PM EDT - 03/27/2025 9:36 PM EDT Emergency [facility] Emergency [address] [place] [address] Urinary frequency (Primary Dx) Discharge [...] LAB HEMETOLOGY METHOD 03/27/2025 4:31 PM EDT [facility] RBC 3.70(L) 3.80 - 4.80 M/mcL LAB HEMETOLOGY METHOD 03/27/2025 4:31 PM EDT [facility] Hemoglobin 12.3 11.5 - 16.0 g/dL LAB HEMETOLOGY METHOD 03/27/2025 4:31 PM EDT [facility] Hematocrit 38.3 35.0 - 47.0 % LAB HEMETOLOGY METHOD 03/27/2025 4:31 PM EDT [facility] MCV 104.1(H) 79.0 - 98.0 FL LAB HEMETOLOGY METHOD 03/27/2025 4:31 PM EDT [facility] MCH 33.4(H) 27.0 - 32.0 pcg LAB HEMETOLOGY METHOD [facility] MCHC 32.1 32.0 - 37.0 g/dL LAB HEMETOLOGY METHOD 03/27/2025 4:31 PM [facility] RDW 14.0 11.0 - 15.0 % LAB HEMETOLOGY METHOD 03/27/2025 4:31 PM [facility] Platelets 251 130 - 400 K/mcL LAB HEMETOLOGY METHOD 03/27/2025 4:31 PM [facility] MPV 10.4 7.0 - 11.0 FL LAB HEMETOLOGY METHOD 03/27/2025 4:31 PM [facility] NRBC 0.0 <1.0 % LAB HEMETOLOGY METHOD 03/27/2025 4:31 PM [facility] NRBC Absolute 0.00 <0.10 K/mcL LAB HEMETOLOGY METHOD 03/27/2025 4:31 PM [facility] Neutrophils Relative 64.5 % LAB HEMETOLOGY METHOD 03/27/2025 4:31 PM [facility] Lymphocytes Relative 22.9 % LAB HEMETOLOGY METHOD 03/27/2025 4:31 PM [facility] Monocytes Relative 8.9 % LAB HEMETOLOGY METHOD 03/27/2025 4:31 PM [facility] Eosinophils Relative 2.2 % LAB HEMETOLOGY METHOD 03/27/2025 4:31 PM [facility] Basophils Relative 0.7 % LAB HEMETOLOGY METHOD 03/27/2025 4:31 PM [facility] Immature Granulocytes Relative 0.8 % LAB HEMETOLOGY METHOD 03/27/2025 4:31 PM [facility] Neutrophils Absolute 6.24 1.50 - 7.00 K/mcL LAB HEMETOLOGY METHOD 03/27/2025 4:31 PM [facility] Lymphocytes Absolute 2.21 1.00 - 5.00 K/mcL LAB HEMETOLOGY METHOD 03/27/2025 4:31 PM [facility] Monocytes Absolute 0.86 0.20 - 1.00 K/mcL LAB HEMETOLOGY METHOD 03/27/2025 4:31 PM EDT [facility] Eosinophils Absolute 0.21 0.00 - 0.50 K/[facility] LAB HEMETOLOGY METHOD 03/27/2025 4:31 PM EDT [facility] Basophils Absolute 0.07 0.00 - 0.20 K/[facility] LAB HEMETOLOGY METHOD 03/27/2025 4:31 PM EDT [facility] Immature Granulocytes Absolute 0.08(H) 0.00 - 0.03 K/[facility] LAB HEMETOLOGY METHOD 03/27/2025 4:31 PM EDT [facility] Blood Venous blood specimen / Unknown Venipuncture / Unknown 03/27/2025 4:06 PM EDT 03/27/2025 4:23 PM EDT us Hank Sidhu DO LAB BLOOD ORDERABLES Final Result [facility] [address] [place] [address], * (ABNORMAL) Comprehensive metabolic panel (03/27/2025 4:06 PM EDT) Sodium 140 133 - 145 mmol/L LAB CHEMISTRY METHOD 03/27/2025 4:59 PM EDT [facility] Potassium 3.3(L) 3.5 - 5.5 mmol/L LAB CHEMISTRY METHOD 03/27/2025 4:59 PM T [facility] Chloride 102 96 - 110 mmol/L LAB CHEMISTRY METHOD 03/27/2025 4:59 PM EDT [facility] CO2 33(H) 21 - 32 mmol/L LAB CHEMISTRY METHOD 03/27/2025 4:59 PM EDT [facility] Anion Gap 5 3 - 11 LAB CHEMISTRY METHOD 03/27/2025 4:59 PM EDT [facility] Glucose 112(H) 70 - 100 mg/dL LAB CHEMISTRY METHOD 03/27/2025 4:59 PM [facility] BUN 19 5 - 25 mg/dL LAB CHEMISTRY METHOD 03/27/2025 4:59 PM [facility] Creatinine 0.89 0.50 - 1.10 mg/dL LAB CHEMISTRY METHOD 03/27/2025 4:59 PM [facility] eGFR 69 >=60 mL/min/1. 73m2 LAB CHEMISTRY METHOD 03/27/2025 4:59 PM [facility] Comment:Calculation based on the Chronic Kidney Disease Epidemiology Collaboration (CKD-EPI) equation refit without adjustment for race. BUN/Creatinine Ratio 21.3 LAB CHEMISTRY METHOD 03/27/2025 4:59 PM [facility] Calcium 8.9 8.5 - 10.5 mg/dL LAB CHEMISTRY METHOD 03/27/2025 4:59 PM [facility] AST (SGOT) 11 10 - 42 unit/L LAB CHEMISTRY METHOD 03/27/2025 4:59 PM [facility] ALT (SGPT) 17 10 - 60 unit/L LAB CHEMISTRY METHOD 03/27/2025 4:59 PM [facility] Alkaline Phosphatase 156(H) 42 - 121 unit/L LAB CHEMISTRY METHOD 03/27/2025 4:59 PM [facility] Total Protein 6.8 6.0 - 8.0 g/dL LAB CHEMISTRY METHOD 03/27/2025 4:59 PM [facility] Albumin 3.4 3.2 - 5.0 g/dL LAB CHEMISTRY METHOD 03/27/2025 4:59 PM [facility] Total Bilirubin 0.3 0.0 - 1.4 mg/dL LAB CHEMISTRY METHOD 03/27/2025 4:59 PM [facility] Blood Venous blood specimen / Unknown Venipuncture / Unknown 03/27/2025 4:06 PM EDT 03/27/2025 4:23 PM EDT us Hank Sidhu DO LAB BLOOD ORDERABLES Final Result [facility] [address] [place] [address], [place] [phone] * (ABNORMAL) Urinalysis with reflex microscopic and culture (03/27/2025 3:56 PM EDT) Pathologist [facility] Specific [place] Urine 1.015 1.003 - 1.030 LAB URINALYSIS - AUTOMATED METHOD 03/27/2025 4:36 PM EDT [facility] pH, Urine 6.0 5.0 - 8.0 pH LAB URINALYSIS - AUTOMATED METHOD 03/27/2025 4:36 PM [facility] Leukocytes, Urine Moderate(A) Negative LAB URINALYSIS - AUTOMATED METHOD 03/27/2025 4:36 PM [facility] Nitrite, Urine Negative Negative LAB URINALYSIS - AUTOMATED METHOD 03/27/2025 4:36 PM T [facility] Protein, Urine Negative <=Trace mg/dL LAB URINALYSIS - AUTOMATED METHOD 03/27/2025 4:36 PM [facility] Glucose, Urine Negative Negative mg/dL LAB URINALYSIS - AUTOMATED METHOD 03/27/2025 4:36 PM T [facility] Ketones, Urine Negative Negative mg/dL LAB URINALYSIS - AUTOMATED METHOD 03/27/2025 4:36 PM [facility] Urobilinogen , Urine 1.0 0.2 - 1.0 mg/dL LAB URINALYSIS - AUTOMATED METHOD 03/27/2025 4:36 PM [facility] Bilirubin, Urine Negative Negative LAB URINALYSIS - AUTOMATED METHOD 03/27/2025 4:36 PM [facility] Blood, Urine Negative Negative LAB URINALYSIS - AUTOMATED METHOD 03/27/2025 4:36 PM EDT [facility] RBC, Urine 2.3 0 - 4 /HPF LAB URINALYSIS - AUTOMATED METHOD 03/27/2025 4:36 PM T [facility] WBC, Urine 19.5(H) 0 - 4 /HPF LAB URINALYSIS - AUTOMATED METHOD 03/27/2025 4:36 PM EDT [facility] Squamous Epithelial, Urine 34 0 - 60 /LPF LAB URINALYSIS - AUTOMATED METHOD 03/27/2025 4:36 PM T [facility] Bacteria, Urine Negative Negative /HPF LAB URINALYSIS - AUTOMATED METHOD 03/27/2025 4:36 PM [facility] Hyaline Casts, Urine 1.2 0 - 3 /LPF LAB URINALYSIS - AUTOMATED METHOD 03/27/2025 4:36 PM T [facility] Urine Urine specimen obtained by clean catch procedure / Unknown Non-blood Collection / Unknown 03/27/2025 3:56 PM EDT 03/27/2025 4:23 PM EDT us Hank Sidhu DO LAB URINE ORDERABLES Final Result [facility] [address] [place] [address], * Kay urine culture tube (03/27/2025 3:56 PM EDT) Extra Tube Hold for add-ons. 03/27/2025 6:01 PM EDT [facility] Comment:Auto resulted. Urine Urine specimen obtained by clean catch procedure / Unknown Non-blood Collection / Unknown 03/27/2025 3:56 PM EDT 03/27/2025 4:23 PM EDT us Hank Sidhu DO LAB URINE ORDERABLES Final Result Performing Organization Address City/[facility]/ZIP Co de Phone Number [facility] [address] [place] [address], [place] [phone] * Culture urine (03/27/2025 3:56 PM EDT) Culture, Urine 10,000-49,000 CFU/mL Mixed urogenital charu, no uropathogens present. Suggest repeat specimen if clinically indicated. 03/28/2025 11:07 AM EDT [facility] Urine Urine specimen obtained by clean catch procedure / Unknown Non-blood Collection / Unknown 03/27/2025 3:56 PM EDT 03/27/2025 4:36 PM EDT Hank Lindsey Sidhu LAB MICROBIOLOGY - GENERAL ORDERABLES Final Result Performing Organization Address [facility]/ZIP Co de Phone Number [facility] [address] [place] [address], [place] [phone] from Last 3 Months Insurance MEDICAID - [place] [address] Advance Directives Documents on File Type Date Recorded 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
== END 2025-06-06 09:55 | disposition home or self-care (01) ==
LOC: HO.US 09:54
PROVIDERS: PCP Physician Assistant; Visit Provider Physician Assistant Surgical
DX: I83.11 Varicose veins of right lower extremity with inflammation (principal); I83.12 Varicose veins of left lower extremity with inflammation
CPT/HCPCS: 93970

== ENCOUNTER → 2025-06-06 09:56 | Outpatient (BNV) | payer MEDICARE, SELFPAY | PROVIDERS: PCP Physician Assistant; Visit Provider Radiology Diagnostic Radiology | DX: I83.893 Varicose veins of bilateral lower extremities with other complications (principal) | CPT/HCPCS: 93970 ==

== ENCOUNTER → 2025-07-10 12:54 | Outpatient (REF) | payer MEDICARE, SELFPAY ==
--- NOTE | 2025-07-10 12:57 | CA_ITS ---
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 The calculated ejection fraction is 62% by biplane method. - No obvious valvular pathology seen on this study. Findings Left Ventricle Normal left ventricular cavity size. There is normal left ventricular wall thickness. The left ventricular systolic function is normal. The calculated ejection fraction is 62% by biplane method. There is no evidence of regional wall motion abnormalities. Evidence suggests grade I (mild) diastolic dysfunction. Right Ventricle Normal right ventricular cavity size and systolic function. Atria Both atria are normal in size. Aortic Valve There is mild calcification of the aortic valve. There is no aortic valve stenosis. There is no aortic valve regurgitation. Mitral Valve There is mild mitral annular calcification. There is no mitral valve regurgitation. There is no mitral valve stenosis. Pulmonic Valve The pulmonic valve is likely normal. Tricuspid Valve There is trace tricuspid valve regurgitation. There is no evidence of pulmonary hypertension. Great Vessels The asc aorta is normal in size. Venous The inferior vena cava is normal in size and collapses greater than 50% with inspiration. Pericardium/Pleural There is no evidence of pericardial effusion. Prior Study Comparison No prior study available for comparison. Recommendations, Care & Conclusions No obvious valvular pathology seen on this study. Measurements 2D Linear Measurements IVSd: 0.91 0.6-0.9/0.6-1.0 cm LVIDd: 5.22 3.9-5.3/4.2-5.9 cm LVIDd Index: 2.43 2.4-3.2/2.2-3.1 cm/m2 LVIDs: 3.35 2.0-3.6 cm LVPWd: 1.00 0.7-1.1 cm LA Diam: 4.20 2.7-3.8/3.0-4.0 cm LAIDs Index: 1.95 1.5-2.3 cm/m2 LV Mass: 227.77 67-162/88-224 g LV Mass Index: 105.94 43-95/49-115 g/m2 LVOT Diam: 2.10 3.0+(-)1.3 cm 2D Systolic Function EF 4C: 66.40 >55% EF 2C: 53.60 >55% EF BiP: 61.80 >55% Mitral Valve MV Pk E: 0.84 MV PK A: 0.86 MV Decel Time: 206.00 E/A: 1.00 E'Lateral: 8.81 E'Medial: 4.68 E/E' Med: 18.00 E/E' Lat: 9.60 PHT: 60.00 MVA PHT: 3.67 Decel Floyd: 4.09 Aortic Valve AoV Pk Franco: 1.58 AoV Mn Franco: 1.08 AoV VTI: 0.31 AoV Pk Grad: 10.00 Aov Mn Grad: 5.00 RAJWINDER Cont.VTI: 2.62 LVOT LVOT Pk Franco: 1.12 LVOT Mn Franco: 0.74 LVOT VTI: 0.24 LVOT Pk Grad: 5.00 LVOT Mn Grad: 3.00 LVOT Diam: 2.10 LVOT Area: 3.46 Diastolic Function MV Pk E: 0.84 MV Pk A: 0.86 E/A: 1.00 E'Medial: 4.68 E/E' Med: 18.00 E' Laterial: 8.81 E/E' Lat: 9.60 Right Ventricle TAPSE (mm): 26.70 TVS' Franco: 12.80 Great Vessels Aorta Sinus of Valsalva: 3.80 2.0-3.5 cm Ao Asc: 3.70 2.1-3.4 cm Pulmonary Veins Pulm Vein S/D 1.60 Pulmonary Valve PV Pk Franco: 0.90 Peak PV Grad: 3.00 Updated in Other Vendor System with Status of Final Pedro Hermosillo MD electronically signed on 07/11/2025 9:46:47 AM with status of Final
--- OUTSIDE RECORDS SUMMARY | 2025-07-10 14:11 | XMS_ITS | Clinical Summary ---
Author Organization [facility] Address [address] [place] [address] Phone Care Team Providers Care Brush Stainer Name Role Phone Physician, Pcp Unknown Primary Care Provider Estella vailable Allergies No known active allergies Medications No known medications Active Problems No known active problems Social History Tobacco Use Types Packs/Day Years [...] 10/11/2022 Social Influencers of Health Screening 10/11/2022 Depression Screening 11/08/2024 COVID-19 Vaccine (1 - 2023-2 5 season) 2025 Influenza Vaccine (#1) 2025 09/17/2016 Falls Risk [...] Procedure Name Priority Date/Time Associated Diagnosis Comments COMPREHENSIVE METABOLIC PANEL STAT 03/27/2025 4:06 PM EDT from Last 3 Months or Most Recently Relevant to Health Maintenance Results * (ABNORMAL) Comprehensive metabolic panel (03/27/2025 4:06 PM EDT) Sodium 140 133 - 145 mmol/L LAB CHEMISTRY METHOD 03/27/2025 4:59 PM EDT [facility] Potassium 3.3(L) 3.5 - 5.5 mmol/L LAB CHEMISTRY METHOD 03/27/2025 4:59 PM [facility] Chloride 102 96 - 110 mmol/L LAB CHEMISTRY METHOD 03/27/2025 4:59 PM [facility] CO2 33(H) 21 - 32 mmol/L LAB CHEMISTRY METHOD 03/27/2025 4:59 PM [facility] Anion Gap 5 3 - 11 LAB CHEMISTRY METHOD 03/27/2025 4:59 PM [facility] Glucose 112(H) 70 - 100 mg/dL LAB CHEMISTRY METHOD 03/27/2025 4:59 PM [facility] BUN 19 5 - 25 mg/dL LAB CHEMISTRY METHOD 03/27/2025 4:59 PM [facility] Creatinine 0.89 0.50 - 1.10 mg/dL LAB CHEMISTRY METHOD 03/27/2025 4:59 PM [facility] eGFR 69 >=60 mL/min/1. 73m2 LAB CHEMISTRY METHOD 03/27/2025 4:59 PM [facility] Comment:Calculation based on the Chronic Kidney Disease Epidemiology Collaboration (CKD-EPI) equation refit without adjustment for race. BUN/Creatinine Ratio 21.3 LAB CHEMISTRY METHOD 03/27/2025 4:59 PM [facility] Calcium 8.9 8.5 - 10.5 mg/dL LAB CHEMISTRY METHOD 03/27/2025 4:59 PM [facility] AST (SGOT) 11 10 - 42 unit/L LAB CHEMISTRY METHOD 03/27/2025 4:59 PM [facility] ALT (SGPT) 17 10 - 60 unit/L LAB CHEMISTRY METHOD 03/27/2025 4:59 PM [facility] Alkaline Phosphatase 156(H) 42 - 121 unit/L LAB CHEMISTRY METHOD 03/27/2025 4:59 PM [facility] Total Protein 6.8 6.0 - 8.0 g/dL LAB CHEMISTRY METHOD 03/27/2025 4:59 PM EDT [facility] Albumin 3.4 3.2 - 5.0 g/dL LAB CHEMISTRY METHOD 03/27/2025 4:59 PM EDT [facility] Total Bilirubin 0.3 0.0 - 1.4 mg/dL LAB CHEMISTRY METHOD 03/27/2025 4:59 PM EDT [facility] Blood Venous blood specimen / Unknown Venipuncture / Unknown 03/27/2025 4:06 PM EDT 03/27/2025 4:23 PM EDT us Hank Sidhu DO LAB BLOOD ORDERABLES Final Result [facility] ([facility] [address] [place] [address], [place] [phone] from Last 3 Months or Most Recently Relevant to Health Maintenance Insurance MEDICAID - [place] [employer] MEDICARE Advance Directives Documents on File Type Date Recorded Patient Track Sweeper Expl anation Health Care Decision (hx) 09/03/2023 AD CLARISA DIRECTIVE Care Teams Brush Stainer Relationship Specialty Start Date End Date Physician, Pcp Unknown PCP - General 03/27/25
== END ==
LOC: HO.CARD 12:54
PROVIDERS: PCP Physician Assistant; Visit Provider Internal Medicine Cardiovascular Disease
DX: I50.32 Chronic diastolic (congestive) heart failure (principal)
CPT/HCPCS: 93306

== ENCOUNTER → 2025-07-10 12:57 | Outpatient (BNV) | payer MEDICARE, SELFPAY | PROVIDERS: PCP Physician Assistant; Visit Provider Internal Medicine | DX: I50.32 Chronic diastolic (congestive) heart failure (principal); I35.8 Other nonrheumatic aortic valve disorders; I34.81 Nonrheumatic mitral (valve) annulus calcification | CPT/HCPCS: 93306 ==

== ENCOUNTER 2025-07-24 08:59 | Outpatient (AMB) | payer MEDICARE, SELFPAY ==
[2025-07-24 09:20] VITALS: BMI 42.6
--- NOTE | 2025-07-24 09:20 | A.OFFVIS_ITS ---
Vital Signs 07/24/25 09:20 Height 5 ft 2 in Weight 233 lb BMI 42.6 Intake Visit Reasons: follow up s/p 06/06/25 Intake Note: follow up 06/06/25 for LE swelling. Pt states Left LE worse than Right LE s/p fall 15 years ago. Waste Disposal Leakage Tester Required: No Accompanied by: Son Allergies No Known Allergies Allergy (Verified 07/24/25 09:22) [facility] follow up s/p 06/06/25: Details: The patient is a 69-year-old female presenting with swelling of the legs. A vein test was conducted and returned normal, indicating that venous insufficiency is not the cause of the swelling. Surgical intervention was deemed unnecessary as the veins are not contributing to the problem. Of note she has diminished mobility and did present to her visit with a wheelchair The patient also experiences knee pain, which limits her mobility and necessitates the use of a walker. She perceives the knee pain as a significant issue as well. She now presents for follow-up with venous insufficiency testing . [facility] Medical History History of calculus of gallbladder Social History Housing: House Alcohol intake: never Patient Tobacco Use Status: Never used Tobacco e-Cigarette/Vaping Use: Never Used Second Hand Smoke Exposure: No service: No Current occupational status: disabled Cognitive needs: Yes (walker, wheelchair, cane ) Hearing needs: No Vision needs: Yes (reading glasses) Review of Systems Const Reports as per HPI ENT Reports no additional complaints Card Denies chest pain, Denies chest pain at rest and Denies chest pain with activity Resp Denies chest congestion and Denies cough GI Reports no additional complaints Musc Details: pain over varicosities, aching of lower extremities, swelling, cramping, heaviness and tiredness, itching Denies abnormal gait Skin/Breast Reports pruritus and Denies wounds Neuro Reports no additional complaints and Denies abnormal gait Psych Denies no additional complaints Physical Exam Vital Signs: BMI result Body Mass Index 42.6 Const General: cooperative, healthy appearing and comfortable Orientation/consciousness: oriented to person, oriented to place and oriented to time Neck Carotids: no bruits Chest Chest palpation & inspection: normal inspection of the chest and normal palpation of entire chest wall Resp Effort & Inspection: normal respiratory effort and able to speak in complete sentences Cardio Rate: regular rate Heart sounds: S1 normal heart sound present and S2 normal heart sound present Peripheral pulses: Peripheral pulses 2+ throughout GI Inspection: Yes normal to inspection Skin Other: +2 edema, large rope-like varicosities greater than 4 mm CEAP Classification C4 - skin color changes Ep - Etiology Primary As - superficial veins P - reflux General skin exam: dry skin Neuro General: oriented to person, oriented to place and oriented to time Extrem Other: Right in cm: Thigh 64 Knee 52 Calf 52 Ankle 37 Left in cm: Thigh 67 Knee 56 Calf 56 Ankle 40 Right lower extremity: full ROM, normal capillary refill and edema Left lower extremity: full ROM, normal capillary refill and edema Psych Mental Status: mental status grossly normal Results Reviewed Results Reviewed: Brief summary of venous insufficiency testing is as follows: right great saphenous vein: negative right small saphenous vein: negative right accessory vein: none present left great saphenous vein: negative left small saphenous vein: negative left accessory vein: none present Please note there is no evidence of any venous aneurysms or significant tor tuosity Assessment & Plan Assessment & Plan (1) Varicose veins of both lower extremities with inflammation: Code(s): I83.11 - Varicose veins of right lower extremity with inflammation; I83.12 - Varicose veins of left lower extremity with inflammation Category: Medical Plan: In short patient is negative for any significant venous insufficiency. We will treat her for lymphedema (2) Lymphedema: Code(s): I89.0 - Lymphedema, not elsewhere classified Category: Medical Plan: In short the patient has late on sent lymphedema. The patient has been on conservative treatment for at least 3 months with minimal relief. Patient has tried 30 mm of mercury compression garments, elevation, exercise healthy diet and doing manual says self MLD to the best of their ability for over 4 weeks but with no significant relief. She has been compliant with the program but has provided minimal relief. In addition on physical we are noticing hyperpigmentation, lymphorrhea, and hyperplasia. It appears that she has stage 2 lymphedema. Patient has completed multiple forms of conservative therapy yet significant symptoms remain. Patient requires the use of a pneumatic compression device which we will assist in trying to have the patient obtain them. A pneumatic compression device will help reduce swelling and other lymphedema comorbidities. Thank you for allowing us to assist in this patient's care. Coding Level of Care Code Est Pt Level 4 (10808) Diagnoses Varicose veins of both lower extremities with inflammation I83.11; I83.12 Lymphedema I89.0
--- OUTSIDE RECORDS SUMMARY | 2025-07-24 11:10 | XMS_ITS | Clinical Summary ---
Author Organization [facility] Address [address] [place] [address] Phone Care Team Providers Care User Experience Lead Name Role Phone Physician, Pcp Unknown Primary [...] LAB CHEMISTRY METHOD 03/27/2025 4:59 PM EDT [facility] Potassium 3.3(L) 3.5 - 5.5 mmol/L LAB CHEMISTRY METHOD 03/27/2025 4:59 PM [facility] Chloride 102 96 - 110 mmol/L LAB CHEMISTRY METHOD 03/27/2025 4:59 PM [facility] CO2 33(H) 21 - 32 mmol/L LAB CHEMISTRY METHOD 03/27/2025 4:59 PM [facility] Anion Gap 5 3 - 11 LAB CHEMISTRY METHOD 03/27/2025 4:59 PM [facility] Glucose 112(H) 70 - 100 mg/dL LAB CHEMISTRY METHOD 03/27/2025 4:59 PM [facility] BUN 19 5 - 25 mg/dL LAB CHEMISTRY METHOD 03/27/2025 4:59 PM [facility] Creatinine 0.89 0.50 - 1.10 mg/dL LAB CHEMISTRY METHOD 03/27/2025 4:59 PM [facility] eGFR 69 >=60 mL/min/1. 73m2 LAB CHEMISTRY METHOD 03/27/2025 4:59 PM [facility] Comment:Calculation based on the Chronic Kidney Disease Epidemiology Collaboration (CKD-EPI) equation refit without adjustment for race. BUN/Creatinine Ratio 21.3 LAB CHEMISTRY METHOD 03/27/2025 4:59 PM [facility] Calcium 8.9 8.5 - 10.5 mg/dL LAB CHEMISTRY METHOD 03/27/2025 4:59 PM [facility] AST (SGOT) 11 10 - 42 unit/L LAB CHEMISTRY METHOD 03/27/2025 4:59 PM [facility] ALT (SGPT) 17 10 - 60 unit/L LAB CHEMISTRY METHOD 03/27/2025 4:59 PM [facility] Alkaline Phosphatase 156(H) 42 - 121 unit/L LAB CHEMISTRY METHOD 03/27/2025 4:59 PM [facility] Total Protein 6.8 6.0 - 8.0 g/dL LAB CHEMISTRY METHOD 03/27/2025 4:59 PM EDT [facility] Albumin 3.4 3.2 - 5.0 g/dL LAB CHEMISTRY METHOD 03/27/2025 4:59 PM EDT [facility] Total Bilirubin 0.3 0.0 - 1.4 mg/dL LAB CHEMISTRY METHOD 03/27/2025 4:59 PM EDT [facility] Blood Venous blood specimen / Unknown Venipuncture / Unknown 03/27/2025 4:06 PM EDT 03/27/2025 4:23 PM EDT us Hank Sidhu DO LAB BLOOD ORDERABLES Final Result [facility] ([facility]) [facility] [address] [place] [address], [place] [phone] from Last 3 Months or Most Recently Relevant to Health Maintenance Insurance MEDICAID - [place] [employer] MEDICARE Advance Directives Documents on File Type Date Recorded Patient Nurse Consultant Expl anation Health Care Decision (hx) 09/03/2023 AD CLARISA DIRECTIVE Care Teams User Experience Lead Relationship Specialty Start Date End Date Physician, Pcp Unknown PCP - General 03/27/25
== END 2025-07-24 09:59 | disposition home or self-care (01) ==
LOC: HO.HVS 09:00
PROVIDERS: PCP Physician Assistant; Visit Provider Surgery Vascular Surgery
DX: I83.11 Varicose veins of right lower extremity with inflammation (principal); I83.12 Varicose veins of left lower extremity with inflammation; I89.0 Lymphedema, not elsewhere classified
CPT/HCPCS: 99214

== ENCOUNTER → 2025-07-24 08:59 | Outpatient (BNVA) | payer MEDICARE, SELFPAY | PROVIDERS: PCP Physician Assistant; Visit Provider Surgery Vascular Surgery | DX: I83.11 Varicose veins of right lower extremity with inflammation (principal); I83.12 Varicose veins of left lower extremity with inflammation; I89.0 Lymphedema, not elsewhere classified | CPT/HCPCS: 99212 ==

== ENCOUNTER 2025-08-02 11:06 | Outpatient (AMB) | payer MEDICARE, SELFPAY ==
--- NOTE | 2025-08-02 11:13 | A.OFFPC_ITS ---
Vital Signs 08/02/25 11:14 Height 5 ft 2 in BMI Reason not done Patient refused/unable BP 130/86 Blood Pressure Location Lt brachial Position Sitting Pulse 90 Pulse Source Pulse Oximeter Pulse Oximetry (%) 96 Oxygen Delivery Method Room Air Intake Visit Reasons: f/u HTN Hr Business Partner Required: No Accompanied by: Self / Same As Patient Allergies No Known Allergies Allergy (Verified 08/02/25 11:27) Medication List - Last Reconciled 08/02/25 by Tim Cornell PA-C acetaminophen ER (Tylenol Arthritis Pain) 650 mg PO Q12H allopurinol 100 mg PO BID biotin 5,000 mcg PO DAILY comp.stocking,knee,long,medium Need for medical compression 10-15 mmHg furosemide (Lasix) 40 mg PO DAILY 90 days gabapentin 300 mg PO TID 90 days Lactobac. rhamnosus GG-inulin 12 billion cell -200 mg 1 cap PO DAILY multivit with min-folic acid 200 mcg 1 tab PO DAILY omeprazole 40 mg PO DAILY simvastatin 40 mg PO BEDTIME sodium polystyrene sulf-sorbtl 15-20 gram/60 mL 60 mL PO .once per week 4 weeks Tobacco use date assessed: 08/02/25 Fall risk assessment: No Falls in past year Last assessed Fall Risk: 08/02/25 Dental Screening Dental Screen Date: 08/02/25 Did you have a dental visit in the last 12 months?: Yes Did you have a dental problem in the last 6 months where you did not have access to dental care?: No Was dental information given to patient?: Patient has dentist HPI f/u HTN HPI Details Patient is a 69-year-old female here today for a follow-up visit . . Patient has a past medical history si gnificant for hypertension, hyperlipidemia, obstructive sleep apnea, prediabetes, nephrolithiasis, heart failure with preserved ejection fraction. Concern--> ? Osteoarthritis bilateral knee--> The patient experiences knee pain, which she attributes to possible arthritis, and has a low threshold for pain. She has received injections in the past, which provided minimal relief, and is currently considering x-rays to evaluate for arthritis. PLAN: Will plan to start Celebrex to help her with her osteoarthritic pain .. Hyperkalemia: Recently found to have hyperkalemia was started polystyrene liquid once weekly. Potassium seems to have improved. Will has been holding her lisinopril has a maybe cause of her hyperkalemia. Advised to recheck labs soon PLAN: will continue off of KATY inhibitor. Continue on furosemide and monitor blood pressure .. Congestive heart failure: Now followed by [facility]. Most recent echocardiogram showing stable EF. Now on Lasix 40 mg daily .. Nephrolithiasis: Patient does follow urologist in [place]. She continues on allopurinol to decrease her recurrent kidney stones. .. Lymphedema: Followed by vascular surgery/lymphedema clinic and will be starting pneumatic compression in near future depending on insurance coverage Seems to have lower extremity edema has a chronic issue. Has not been wearing her compression stockings as she finds it hard to place them on. Recent ultrasounds indicated venous insufficiency in the great saphenous vein of the right leg and the small saphenous vein of the left leg. .. Impaired glucose metabolism: Patient's most recent fasting blood sugar slightly elevated and A1c 6.0. She will continue working on dietary modifications on controlling her fasting blood sugars Laboratory Tests 03/01/25 03/08/25 03/23/25 09:39 10:54 10:37 Hgb 11.3 L Potassium 5.6 H 3.4 D BUN 37 H Creatinine 1.51 H 1.10 Fasting Glucose 105 H Hemoglobin A1c % 6.0 COUNTS INCLUDE 234 BEDS AT THE [facility] Medical History History of calculus of gallbladder Social History Housing: House Alcohol intake: never Patient Tobacco Use Status: Never used Tobacco e-Cigarette/Vaping Use: Never Used Second Hand Smoke Exposure: No service: No Current occupational status: disabled Cognitive needs: Yes (walker, wheelchair, cane ) Hearing needs: No Vision needs: Yes (reading glasses) Questionnaire Thrive Questionnaire Date Thrive assessed: 12/12/24 I am a: Patient What is your living situation today?: I have a steady place to live Within the past 12 months, did the food you bought not last and you didn't have the money to get more?: Never true Within the past 12 months, did you worry whether your food would run out before you got money to buy more?: Never true Do you have trouble paying for medicines?: No Do you have trouble getting transportation to medical appointments?: No Do you have trouble paying your heating and electricity bill?: No Do you have trouble taking care of your child, family member or friend?: No Do you have trouble with day-to-day activities such as bathing, preparing meals, shopping, managing finances, etc.?: No Are you currently unemployed and looking for a job?: No Are you interested in more education?: No Please select the resources that you would like help with: None Currently or been in a relationship where the following occur: No concerns reported THRIVE Score: 0 AUDIT C Alcohol Use Questionnaire (AUDIT-C) 1. How often do you have a drink containing alcohol?: Never 3. How often do you have six or more drinks on one occasion?: Never Total Score: 0 JARED-7 AMB Questionnaire JARED-7 Date JARED - 7 assessed: 12/12/24 Source: Developed by Drs. Efra Bautista, Priyanka Ewing, Chang Ruiz and colleagues, with an educational phillip from [employer]. Review of Systems Const Denies headache(s) Eyes Denies loss of vision ENT Denies vertigo, Denies dizziness, Denies headache(s) and Denies sore throat Card Denies chest pain, Denies leg edema and Denies lightheadedness Resp Denies cough, Denies hemoptysis and Denies wheezing GI Denies abdominal pain, Denies melena, Denies constipation, Denies diarrhea and Denies vomiting Denies urinary frequency, Denies dysuria and Denies urinary urgency Musc Denies arthralgias, Denies joint swelling, Denies numbness and Denies tingling Neuro Denies Abnormal speech present, Denies behavioral changes, Denies vertigo, Denies dizziness, Denies headache(s), Denies loss of vision, Denies memory loss, Denies numbness and Denies tingling Psych Denies anxiety, Denies behavioral changes, Denies depression, Denies memory loss and Denies panic attacks Deangelo/Lymph Denies easy bleeding and Denies easy bruising Aller/Immun Denies wheezing Physical exam (Primary Care) Vital Signs: Last Vital Signs Pulse 90 08/02/25 11:14 BP 130/86 08/02/25 11:14 Pulse Ox 96 08/02/25 11:14 Oxygen Delivery Method Room Air 08/02/25 11:14 Tobacco/Smoking Status: Tobacco use Status Tobacco use date assessed 08/02/25 08/02/25 11:18 Patient Tobacco Use Status Never used Tobacco 08/02/25 11:18 e-Cigarette/Vaping Use Never Used 08/02/25 11:18 Thrive Assessment: Date of Thrive Assessment Date Thrive assessed 12/12/24 08/02/25 11:18 Currently or been in a relationship where the following occur: No concerns reported Const General: healthy appearing, no acute distress, alert and awake Nutritional Appearance: well nourished Orientation/consciousness: oriented to person, oriented to place and oriented to time HENMT Ears: TM's normal bilaterally General nose exam: Normal nasal mucous membranes and turbinates present Eyes Conjunctivae: conjunctivae normal Sclerae: sclerae normal Pupils: Equal, round and reactive pupils present Neck Neck: Yes no lymphadenopathy and Yes no JVD Thyroid: Thyroid normal Carotids: no bruits Resp Effort & Inspection: normal respiratory effort and not tachypneic Auscultation: no crackles, no rales, no rhonchi and no wheezes Cardio Rate: regular rate Rhythm: regular rhythm Heart sounds: no murmurs and normal S1 and S2 GI Palpation (GI): Soft to palpation, nontender, no hepatomegaly and no splenomegaly Auscultation: normal bowel sounds Skin General skin exam: no rashes or lesions noted and dry skin Neuro General: oriented to person, oriented to place and oriented to time Cranial nerves: Yes Equal, round and reactive pupils present Speech: No Abnormal speech present Gait exam (Neuro): Normal gait present Motor exam (neuro): no tremor noted Extrem Other: BILATERAL LOWER EXTREMITIES WITH NOTABLE LYMPHEDEMA Right upper extremity: full ROM Left upper extremity: full ROM Right lower extremity: full ROM; no edema Left lower extremity: full ROM; no edema Psych Mental Status: mental status grossly normal Speech and movement: Normal speech and movement present Affect: normal affect Attitude: cooperative Thought process: Normal thought process present Coding Level of Care Code Est Pt Level 4 (66960) Diagnoses Primary hypertension I10 Hypertension type: primary hypertension Chronic pain of both knees M25.561; M25.562; G89.29 Chronicity: chronic Chronic diastolic congestive heart failure, NYHA class 2 I50.32 Congestive heart failure type: diastolic Congestive heart failure chronicity: chronic Class 3 obesity E66.813 Mixed hyperlipidemia E78.2 Hyperlipidemia type: mixed hyperlipidemia Impaired glucose metabolism R73.09 Lymphedema I89.0 Assessment & Plan Assessment & Plan (1) HTN (hypertension): Code(s): I10 - Essential (primary) hypertension Category: Medical Qualifiers: Hypertension type: primary hypertension Qualified Code(s): I10 - Essential (primary) hypertension Plan: Patient's blood pressure acceptable today office. We have discontinued her lisinopril to the hyperkalemia. She has been started on Lasix 40 mg daily Goal blood pressure to be below 140/90 (2) Bilateral knee pain: Code(s): M25.561 - Pain in right knee; M25.562 - Pain in left knee Category: Medical Qualifiers: Chronicity: chronic Qualified Code(s): M25.561 - Pain in right knee; M25.562 - Pain in left knee; G89.29 - Other chronic pain Plan: For the knee pain, suspected to be due to arthritis, x-rays have been ordered to assess the condition further. The patient will be prescribed Celebrex as an anti-inflammatory medication to help manage the pain. (3) CHF (congestive heart failure), NYHA class II: Code(s): I50.9 - Heart failure, unspecified Category: Medical Qualifiers: Congestive heart failure type: diastolic Congestive heart failure chronicity: chronic Qualified Code(s): I50.32 - Chronic diastolic (congestive) heart failure Plan: Now followed by [facility], most recent echocardiogram showing stable findings. She is now on Lasix 40 mg daily Now following with [facility] (4) Class 3 obesity: Code(s): E66.813 - Obesity, class 3 Category: Medical Plan: Patient does understand her BMI is over 40 and will continue working on being more physically active and adapting to better eating habits to reduce weight (5) HLD (hyperlipidemia): Code(s): E78.5 - Hyperlipidemia, unspecified Category: Medical Qualifiers: Hyperlipidemia type: mixed hyperlipidemia Qualified Code(s): E78.2 - Mixed hyperlipidemia Plan: Patient continues on simvastatin 40 mg. Will check a fasting lipid panel to ensure appropriate total cholesterol and LDL. Goal LDL to be below 100 (6) Impaired glucose metabolism: Code(s): R73.09 - Other abnormal glucose Category: Medical Plan: Patient has a history of prediabetes most recent fasting blood sugar slightly elevated in A1c is 6.0. She will continue working on dietary modifications to reduce her blood sugars. Goal A1c is to remain below 6.5. (7) Lymphedema: Code(s): I89.0 - Lymphedema, not elsewhere classified Category: Medical Plan: Now followed by the lymphedema clinic here in [place] Patient's venous insufficiency and lymphedema by continuing with the scheduled appointment at the vascular clinic on August 15. Compression devices have been recommended to manage swelling, although the patient finds them challenging to use Orders: Orders XR knee LT 3V Today G89.29 - Other chronic pain, M25.561 - Pain in right knee, M25.562 - Pain in left knee XR knee RT 3V Today G89.29 - Other chronic pain, M25.561 - Pain in right knee, M25.562 - Pain in left knee Medications: New celecoxib (Celebrex) 200 mg PO DAILY 90 caps 1RF 90 days G89.29 - Other chronic pain, M25.561 - Pain in right knee, M25.562 - Pain in left knee
[2025-08-02 11:14] VITALS: BP 130/86; PULSE 90; O2SAT 96
== END 2025-08-02 11:45 | disposition home or self-care (01) ==
LOC: HO.HMCH 11:07
PROVIDERS: PCP Physician Assistant; Visit Provider Physician Assistant
DX: I12.9 Hypertensive chronic kidney disease with stage 1 through stage 4 chronic kidney disease, or unspecified chronic kidney disease (principal); I50.32 Chronic diastolic (congestive) heart failure; E66.813 Obesity, class 3; M25.561 Pain in right knee; M25.562 Pain in left knee; G89.29 Other chronic pain; E78.2 Mixed hyperlipidemia; R73.09 Other abnormal glucose; I89.0 Lymphedema, not elsewhere classified

== ENCOUNTER → 2025-08-02 11:06 | Outpatient (BNVA) | payer MEDICARE, SELFPAY | PROVIDERS: PCP Physician Assistant; Visit Provider Physician Assistant | DX: I11.0 Hypertensive heart disease with heart failure (principal); M17.0 Bilateral primary osteoarthritis of knee; I50.32 Chronic diastolic (congestive) heart failure; E66.813 Obesity, class 3; E78.2 Mixed hyperlipidemia; R73.09 Other abnormal glucose; I89.0 Lymphedema, not elsewhere classified | CPT/HCPCS: 99212 ==

== ENCOUNTER 2025-08-15 12:23 | Outpatient (REF) | payer MEDICARE, SELFPAY ==
--- NOTE | ~2025-08-15 | XR_ITS ---
EXAMINATION: XR KNEE, RIGHT CLINICAL INFORMATION: M25.561 - Pain in right knee COMPARISON: None available. TECHNIQUE: Three views of the right knee. FINDINGS: There is no joint effusion. There is moderate to severe narrowing of the medial joint space and mild to moderate narrowing of the lateral joint space. There are tricompartmental marginal osteophytes. XR/XR knee RT 3V IMPRESSION: Moderate to severe osteoarthritis Electronically signed by: Ismael Green MD 08/15/2025 12:51 PM EDT
--- NOTE | ~2025-08-15 | XR_ITS ---
EXAMINATION: XR KNEE, LEFT CLINICAL INFORMATION: M25.561 - Pain in right knee COMPARISON: None available. TECHNIQUE: Three views of the left knee. FINDINGS: No fracture, dislocation, or suspicious bone lesion. There is normal alignment. There is moderate to severe tricompartmental joint space narrowing, with near [id number] appearance, subchondral sclerosis, and marginal osteophytic spurring. There is spurring of the tibial spines. There is a large patellofemoral superiorly oriented spur on the lateral projection. There is a moderate size joint effusion on the lateral projection. There is no soft tissue abnormality. XR/XR knee LT 3V IMPRESSION: No acute bony abnormality. Moderate to severe tricompartmental osteoarthrosis. Electronically signed by: Hemant Torres MD 08/15/2025 12:52 PM EDT
== END 2025-08-15 12:24 | disposition home or self-care (01) ==
LOC: HO.XRAY 12:23
PROVIDERS: PCP Physician Assistant; Visit Provider Physician Assistant
DX: I89.0 Lymphedema, not elsewhere classified (principal); M25.562 Pain in left knee; M25.561 Pain in right knee; G89.29 Other chronic pain
CPT/HCPCS: 73562

== ENCOUNTER → 2025-08-15 12:28 | Outpatient (BNV) | payer MEDICARE, SELFPAY | PROVIDERS: PCP Physician Assistant; Visit Provider Radiology Diagnostic Radiology | DX: M17.0 Bilateral primary osteoarthritis of knee (principal) | CPT/HCPCS: 73562 ==

== ENCOUNTER 2025-09-11 08:33 | Outpatient (AMB) | payer MEDICARE, SELFPAY ==
--- NOTE | 2025-09-11 08:44 | A.OFFVIS_ITS ---
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 Patient reports ongoing pain for more than 2 year. She was seen at her PCP office for her knee pain and she was prescribed Celebrex. Patient reports her pain is worse on the right knee than the left. She mentions that her pain is worse when she is walking, bending, and going up and down the stairs. Hx of lympidima. IMPRESSION(right knee): Moderate to severe osteoarthritis IMPRESSION(left): No acute bony abnormality. Moderate to severe tricompartmental osteoarthrosis. 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 Luque is a 69-year-old female who presents to the office today using a wheelchair to assist with ambulation, for reports of bilateral knee pain. Angelito caldwell also has a cane that she uses to assist with ambulation. Patient reports ongoing pain for more than 2 years. She was seen at her PCP office for her knee pain and she was prescribed Celebrex. Patient reports her pain is worse on the right knee than the left. Her pain increases with walking, bending, and going up and down the stairs. Hx of lympidima. Patient reports that she did have 1 cortisone injection in the past but reports this did not assist with her pain. [facility] Medical History History of calculus of gallbladder Social History Housing: House Alcohol intake: never Patient Tobacco Use Status: Never used Tobacco e-Cigarette/Vaping Use: Never Used Second Hand Smoke Exposure: No service: No Current occupational status: disabled Cognitive needs: Yes (walker, wheelchair, cane ) Hearing needs: No Vision needs: Yes (reading glasses) Review of Systems Const All systems reviewed & are unremarkable except as noted in HPI and below Physical Exam Vital Signs: BMI result Body Mass Index 42.9 Const General: cooperative, healthy appearing and no acute distress Resp Effort & Inspection: normal respiratory effort and able to speak in complete sentences Extrem Other: Bilateral knees no ecchymosis, erythema or joint effusion. 0-90 degrees. NVI. Psych Appearance: grossly normal Mental Status: mental status grossly normal Attitude: cooperative Office Procedures AMB Joint Injection/Aspiration Joint Injection/Aspiration Primary Site: right knee Secondary Site: left knee Prep: site was prepped using aseptic technique, ethochloride spray was applied and injection warnings given Injected: 40 mg of, with 3 mL of, 1% plain lidocaine, 0.25% bupivacaine, in the joint and decadron Approach Used: anterolateral Procedure: The patient tolerated the procedure well, but had some pain with the injection and there was some relief with the local anesthesia Coding - Bilateral Large Joint Procedure code (CPT) selection complete Assessment & Plan Assessment & Plan (1) Osteoarthritis of knees, bilateral: Code(s): M17.0 - Bilateral primary osteoarthritis of knee Category: Medical Plan The patient was offered cortisone injections in bilateral knees. The patient was explained the risks, benefits, and alternatives to receiving this injection. After receiving consent for the injection, the patient had the procedure done while in the office today. The patient tolerated the procedure well with no complications. Should the cortisone injections not provide her any relief after 4 weeks she will contact the office in the next step would be to petition the insurance company for gel injections. Patient understands and accepts. At this time this patient is not a surgical candidate for the following reasons; BMI 42.9, lymphedema bilateral lower extremities, heart failure with preserved ejection fraction, prediabetes and class 3 obesity. Follow-up will be PRN, or sooner if needed X-rays of the bilateral knees which were obtained while in the office today and were reviewed by me, Marianela Davis PA-C, revealed significant bilateral knee osteoarthritis. Orders: Orders XR knee standing BI Today M25.569 - Pain in unspecified knee Coding Level of Care Code New Pt Level 4 (42775) Diagnoses Osteoarthritis of knees, bilateral M17.0 CPT Codes Coding - - Bilateral Large Joint: 01143 - Bilateral Large Joint ([id number])
[2025-09-11 08:49] VITALS: BMI 42.9
--- OUTSIDE RECORDS SUMMARY | 2025-09-11 08:56 | XMS_ITS | Clinical Summary ---
Author Organization [facility] Address [address] [place] [address] Phone Care Team Providers Care Manager Personal Name Role Phone Physician, Pcp Unknown Primary [...] RSV Immunization Adult Patients (1 - Risk 50-74 years 1-dose series) 2003 Zoster Vaccines (2 of 3) 05/24/2015 03/29/2015 [...] LAB CHEMISTRY METHOD 03/27/2025 4:59 PM EDT [facility] Potassium 3.3(L) 3.5 - 5.5 mmol/L LAB CHEMISTRY METHOD 03/27/2025 4:59 PM [facility] Chloride 102 96 - 110 mmol/L LAB CHEMISTRY METHOD 03/27/2025 4:59 PM [facility] CO2 33(H) 21 - 32 mmol/L LAB CHEMISTRY METHOD 03/27/2025 4:59 PM [facility] Anion Gap 5 3 - 11 LAB CHEMISTRY METHOD 03/27/2025 4:59 PM [facility] Glucose 112(H) 70 - [...] LAB CHEMISTRY METHOD 03/27/2025 4:59 PM EDT [facility] Albumin 3.4 3.2 - 5.0 g/dL LAB CHEMISTRY METHOD 03/27/2025 4:59 PM EDT [facility] Total Bilirubin 0.3 0.0 - 1.4 mg/dL LAB CHEMISTRY METHOD 03/27/2025 4:59 PM EDT [facility] Blood Venous blood specimen / Unknown Venipuncture / Unknown 03/27/2025 4:06 PM EDT 03/27/2025 4:23 PM EDT us Hank Sidhu DO LAB BLOOD ORDERABLES Final Result [facility] ([facility]) 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
== END 2025-09-11 09:25 | disposition home or self-care (01) ==
LOC: HO.HOS 08:33
PROVIDERS: PCP Physician Assistant; Visit Provider Physician Assistant
DX: M17.0 Bilateral primary osteoarthritis of knee (principal)
CPT/HCPCS: 20610; 99203

== ENCOUNTER → 2025-09-11 08:35 | Outpatient (BNV) | payer MEDICARE, SELFPAY | PROVIDERS: Visit Provider Radiology Diagnostic Radiology | DX: M25.569 Pain in unspecified knee (principal) | CPT/HCPCS: 73565 ==

== ENCOUNTER 2025-09-11 12:13 | Outpatient (REF) | payer MEDICARE, SELFPAY ==
--- NOTE | ~2025-09-11 | XR_ITS ---
EXAMINATION: XR KNEE AP STANDING CLINICAL INFORMATION: M25.569 - Pain in unspecified knee COMPARISON: Left knee radiographs 08/15/2025. TECHNIQUE: AP bilateral standing view of the knees was obtained. FINDINGS: RIGHT KNEE: There is mild osseous demineralization. No acute fracture, dislocation, or suspicious bone lesion. Severe medial compartment osteoarthrosis with auvj-qc-xepa appearance, subchondral sclerosis, and marginal osteophytic spurring. There is compensatory widening of the lateral compartment with mild varus angulation of the joint. There is spurring of the tibial spines. There is no soft tissue abnormality. LEFT KNEE: There is mild osseous demineralization. No acute fracture, dislocation, or suspicious bone lesion. Moderate to severe medial and lateral compartment osteoarthrosis with near ezss-bk-[id number] appearance, subchondral sclerosis, and marginal osteophytic spurring. There is spurring of the tibial spines. There is no soft tissue abnormality. XR/XR knee standing BI IMPRESSION: 1. No acute bony or soft tissue abnormality in either knee. 2. Relatively severe bicompartmental osteoarthrosis of both knees. 3. There is mild varus angulation of the right knee. Electronically signed by: Hemant Torres MD 09/11/2025 08:49 AM [facility]
--- OUTSIDE RECORDS SUMMARY | 2025-09-12 14:53 | XMS_ITS | Clinical Summary ---
Author Organization [facility] Address [address] [place] [address] Phone Care Team Providers Care Choral Teacher Name Role Phone Physician, Pcp Unknown Primary [...] LAB CHEMISTRY METHOD 03/27/2025 4:59 PM EDT [facility] Potassium 3.3(L) 3.5 - 5.5 mmol/L LAB CHEMISTRY METHOD 03/27/2025 4:59 PM [facility] Chloride 102 96 - 110 mmol/L LAB CHEMISTRY METHOD 03/27/2025 4:59 PM [facility] CO2 33(H) 21 - 32 mmol/L LAB CHEMISTRY METHOD 03/27/2025 4:59 PM [facility] Anion Gap 5 3 - 11 LAB CHEMISTRY METHOD 03/27/2025 4:59 PM [facility] Glucose 112(H) 70 - 100 mg/dL LAB CHEMISTRY METHOD 03/27/2025 4:59 PM [facility] BUN 19 5 - 25 mg/dL LAB CHEMISTRY METHOD 03/27/2025 4:59 PM [facility] Creatinine 0.89 0.50 - 1.10 mg/dL LAB CHEMISTRY METHOD 03/27/2025 4:59 PM [facility] eGFR 69 >=60 mL/min/1. 73m2 LAB CHEMISTRY METHOD 03/27/2025 4:59 PM [facility] Comment:Calculation based on the Chronic Kidney Disease Epidemiology Collaboration (CKD-EPI) equation refit without adjustment for race. BUN/Creatinine Ratio 21.3 LAB CHEMISTRY METHOD 03/27/2025 4:59 PM [facility] Calcium 8.9 8.5 - 10.5 mg/dL LAB CHEMISTRY METHOD 03/27/2025 4:59 PM [facility] AST (SGOT) 11 10 - 42 unit/L LAB CHEMISTRY METHOD 03/27/2025 4:59 PM [facility] ALT (SGPT) 17 10 - 60 unit/L LAB CHEMISTRY METHOD 03/27/2025 4:59 PM [facility] Alkaline Phosphatase 156(H) 42 - 121 unit/L LAB CHEMISTRY METHOD 03/27/2025 4:59 PM [facility] Total Protein 6.8 6.0 - 8.0 g/dL LAB CHEMISTRY METHOD 03/27/2025 4:59 PM EDT [facility] Albumin 3.4 3.2 - 5.0 g/dL LAB CHEMISTRY METHOD 03/27/2025 4:59 PM EDT [facility] Total Bilirubin 0.3 0.0 - 1.4 mg/dL LAB CHEMISTRY METHOD 03/27/2025 4:59 PM EDT [facility] Blood Venous blood specimen / Unknown Venipuncture / Unknown 03/27/2025 4:06 PM EDT 03/27/2025 4:23 PM EDT us Hank Sidhu DO LAB BLOOD ORDERABLES Final Result [facility] ([facility]) [facility] [address] [place] [address], [place] [phone] from Last 3 Months or Most Recently Relevant to Health Maintenance Insurance [place] [employer] [place]ICARE Advance Directives Documents on File Type Date 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
== END 2025-09-11 12:14 | disposition home or self-care (01) ==
LOC: HO.HOSX 12:13
PROVIDERS: Visit Provider Physician Assistant
DX: M17.0 Bilateral primary osteoarthritis of knee (principal)
CPT/HCPCS: 20610; 73565; 99202; J0665; J1100; J2003